=== PATIENT | female | born 1985 | race Caucasian/White ===

== ENCOUNTER 2016-05-06 14:24 | Emergency (ER) | payer OTHER ==
[2016-05-06] MEDS ORDERED: Sodium Chloride 0.9% 10 ML Syringe FLUSH PRN (15:04)
[2016-05-06] MEDS ORDERED: Ondansetron 4 MG/2 ML SDV IVPUSH ONE (15:06)
[2016-05-06] MEDS ORDERED: HYDROmorphone 0.5 MG/0.5 ML Syringe IVPUSH ONE (15:06)
[2016-05-06] MEDS ORDERED: Sodium Chloride 0.9% 1,000 ML IV SCH (15:15)
--- NOTE | 2016-05-06 15:19 | EDM.PDOC ---
ED HPI GI/ABDOMINAL - General Chief Complaint: Flank Pain Stated Complaint: FLANK PAIN/ 5.5 WEEKS PREG Time Seen by Provider: 05/06/16 15:02 Source of Information: Reports: Patient History Limitations: Reports: No limitations - History of Present Illness INITIAL COMMENTS - FREE TEXT/NARRATIVE: Patient is a 30-year-old female who presents to the ED complaining of bilateral adnexa tenderness with low back pain that radiates into the flanks. Pain is constant in nature described as a crampy sensation. This is worsened with walking, prolonged standing, and palpation. Discomfort is improved with resting and sitting. Currently the discomfort to 4/10. States she is approximately 5 and half weeks confirmed by PCP. 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 States she has pain with urination with intermittent increased frequency and also decreased amount. She has been nauseated with episodes of emesis consistent with morning sickness. She denies any fever/ chills, abnormal vaginal discharge, vaginal bleeding, diarrhea, constipation, increased flatulence, history of ovarian cyst, history of ectopic , history of sexual transmitted disease, or any additional complaints. history 2, para one, zero, miscarriage zero. She has history of kidney stones to which she states the pain she is currently experiencing is no way related to previous episodes. Timing/Duration: Reports: Constant, Waxing/waning Location: other (right and left adnexa pain) Quality: Reports: ache, cramping Severity: moderate Worsens with: Reports: palpation, other (standing, ambulating) Context: Denies: sick contact, bad/questionable food, out of country travel, recent surgery, recent trauma, lifting, activity/exercise Associated Symptoms (-Female): Reports: back pain, groin pain, loss of appetite, nausea/vomiting. Denies: constipation, diarrhea, bloody stools, fever /chills Treatments CLIENT RESOLUTION SPECIALIST: Reports: Acetaminophen - Related Data Allergies/ADRs: Allergies Allergy/AdvReac Type Severity Reaction Status Date / Time latex Allergy Hives Verified 05/06/16 14:45 Home Meds: Home Meds Vit37/Iron/Folic Acid [Prenata] 1 each PO DAILY 05/06/16 [History] Past Medical History - Past Health History Medical/Surgical History: Denies Medical/Surgical History Genitourinary History: Reports: Renal calculus Social & Family History - Tobacco Use Smoking Status *Q: Never Smoker Second Hand Smoke Exposure: No - Caffeine Use Caffeine Use: Reports: None - Recreational Drug Use Recreational Drug Use: No ED ROS GENERAL - Review of Systems Review Of Systems: See Below Constitutional: Reports: no symptoms Respiratory: Reports: no symptoms Cardiovascular: Reports: No symptoms GI/Abdominal: Reports: Abdominal pain, Decreased appetite, Nausea, Vomiting. Denies: Black stool, Bloody stool, Constipation, Diarrhea, Distension, Flatus, Hematochezia, Melena : Reports: dysuria, flank pain, frequency, irregular menses, pain, urgency. Denies: hematuria, incontinence, urinary retention Musculoskeletal: Reports: back pain (Low back bilaterally) Neurological: Reports: no symptoms ED EXAM, GI/ABD - Physical Exam Exam: See Below Exam Limited By: No limitations General Appearance: alert, WD/WN, mild distress Ears: hearing grossly normal Nose: normal inspection Throat/Mouth: Normal voice, No airway compromise Neck: normal inspection, supple Respiratory/Chest: no respiratory distress, lungs clear, normal breath sounds, no accessory muscle use Cardiovascular: normal peripheral pulses, regular rate, rhythm GI/Abdominal: normal bowel sounds, soft, no organomegaly, no distention, tenderness (Adnexa bilaterally). No: McBurney's sign, Duggan's sign Back Exam: normal inspection, other (tenderness to the low back bilaterally with radiation to the flanks and groins). No: CVA tenderness (L), CVA tenderness (R), muscle spasm Neurological: alert, oriented, CN II-XII intact, normal cognition, no motor/ sensory deficits Psychiatric: normal affect, normal mood Skin Exam: Warm, Dry, Intact, Normal color Course - Vital Signs Last Recorded V/S: Last Vital Signs Temp 98.1 F 05/06/16 17:54 Pulse 83 05/06/16 17:54 Resp 18 05/06/16 17:54 BP 127/83 05/06/16 17:54 Pulse Ox 100 05/06/16 17:54 - Orders/Labs/Meds Orders: Active Orders 24 hr Category Date Time Status Peripheral IV Care [RC] . DIRECTED Care 05/06/16 15:04 Active PATIENT RETYPE [BBK] Stat Lab 05/06/16 15:32 Results TYPE AND SCREEN [BBK] Stat Lab 05/06/16 15:32 Results Peripheral IV Insertion Adult [OM.PC] Stat Oth 05/06/16 15:03 Ordered Labs: Laboratory Tests 05/06/16 05/06/16 05/06/16 Range/Units 14:50 15:32 15:32 WBC 7.49 (3.98-10.04) K/mm3 RBC 4.22 (3.98-5.22) M/mm3 Hgb 12.3 (11.2-15.7) gm/L Hct 36.5 (34.1-44.9) % MCV 86.5 (79.4-94.8) fl MCH 29.1 (25.6-32.2) pg MCHC 33.7 (32.2-35.5) g/dl RDW Std Deviation 40.8 (36.4-46.3) fL Plt Count 237 (182-369) K/mm3 MPV 9.9 (9.4-12.3) fl Neut % (Auto) 56.0 (34.0-71.1) % Lymph % (Auto) 29.5 (19.3-51.7) % Caroline % (Auto) 10.4 (4.7-12.5) % Eos % (Auto) 3.3 (0.7-5.8) Baso % (Auto) 0.7 (0.1-1.2) % Neut # 4.19 (1.56-6.13) K/mm3 Lymph # 2.21 (1.18-3.74) K/mm3 Caroline # 0.78 H (0.24-0.36) K/mm3 Eos # 0.25 (0.04-0.36) K/mm3 Baso # 0.05 (0.01-0.08) K/mm3 Sodium 140 (136-145) mEq/L Potassium 3.6 (3.5-5.1) mEq/L Chloride 104 (98-107) mEq/L Carbon Dioxide 25 (21-32) mEq/L Anion Gap 14.6 (5-15) BUN 10 (7-18) mg/dL Creatinine 0.8 (0.55-1.02) mg/dL Est Cr Clr Drug Dosing 75.20 mL/min Estimated GFR (MDRD) > 60 (>60) mL/min BUN/Creatinine Ratio 12.5 L (14-18) Glucose 88 (74-106) mg/dL Calcium 9.0 (8.5-10.1) mg/dL Total Bilirubin 0.4 (0.2-1.0) mg/dL AST 10 L (15-37) U/L ALT 21 (14-59) U/L Alkaline Phosphatase 64 (46-116) U/L C-Reactive Protein 0.2 (<1.0) mg/dL Total Protein 7.8 (6.4-8.2) g/dl Albumin 4.1 (3.4-5.0) g/dl Globulin 3.7 gm/dL Albumin/Globulin Ratio 1.1 (1-2) HCG, Quant 00950.0 mIU/mL Urine Color Yellow (Yellow) Urine Appearance Clear (Clear) Urine pH 7.0 (5.0-8.0) Ur Specific Jarrell 1.025 (1.005-1.030) Urine Protein Negative (Negative) Urine Glucose (UA) Negative (Negative) Urine Ketones Negative (Negative) Urine Occult Blood Negative (Negative) Urine Nitrite Negative (Negative) Urine Bilirubin Negative (Negative) Urine Urobilinogen 0.2 (0.2-1.0) Ur Leukocyte Esterase Negative (Negative) Urine RBC 0-5 (0-5) /hpf Urine WBC 0-5 (0-5) /hpf Ur Epithelial Cells 0-5 (0-5) /hpf Urine Bacteria Moderate H (FEW) /hpf Urine Mucus Moderate H (FEW) /hpf Urinalysis Comment Blood Type Gel Antibody Screen 05/06/16 Range/Units 15:32 WBC (3.98-10.04) K/mm3 RBC (3.98-5.22) M/mm3 Hgb (11.2-15.7) gm/L Hct (34.1-44.9) % MCV (79.4-94.8) fl MCH (25.6-32.2) pg MCHC (32.2-35.5) g/dl RDW Std Deviation (36.4-46.3) fL Plt Count (182-369) K/mm3 MPV (9.4-12.3) fl Neut % (Auto) (34.0-71.1) % Lymph % (Auto) (19.3-51.7) % Caroline % (Auto) (4.7-12.5) % Eos % (Auto) (0.7-5.8) Baso % (Auto) (0.1-1.2) % Neut # (1.56-6.13) K/mm3 Lymph # (1.18-3.74) K/mm3 Caroline # (0.24-0.36) K/mm3 Eos # (0.04-0.36) K/mm3 Baso # (0.01-0.08) K/mm3 Sodium (136-145) mEq/L Potassium (3.5-5.1) mEq/L Chloride (98-107) mEq/L Carbon Dioxide (21-32) mEq/L Anion Gap (5-15) BUN (7-18) mg/dL Creatinine (0.55-1.02) mg/dL Est Cr Clr Drug Dosing mL/min Estimated GFR (MDRD) (>60) mL/min BUN/Creatinine Ratio (14-18) Glucose (74-106) mg/dL Calcium (8.5-10.1) mg/dL Total Bilirubin (0.2-1.0) mg/dL AST (15-37) U/L ALT (14-59) U/L Alkaline Phosphatase (46-116) U/L C-Reactive Protein (<1.0) mg/dL Total Protein (6.4-8.2) g/dl Albumin (3.4-5.0) g/dl Globulin gm/dL Albumin/Globulin Ratio (1-2) HCG, Quant mIU/mL Urine Color (Yellow) Urine Appearance (Clear) Urine pH (5.0-8.0) Ur Specific Jarrell (1.005-1.030) Urine Protein (Negative) Urine Glucose (UA) (Negative) Urine Ketones (Negative) Urine Occult Blood (Negative) Urine Nitrite (Negative) Urine Bilirubin (Negative) Urine Urobilinogen (0.2-1.0) Ur Leukocyte Esterase (Negative) Urine RBC (0-5) /hpf Urine WBC (0-5) /hpf Ur Epithelial Cells (0-5) /hpf Urine Bacteria (FEW) /hpf Urine Mucus (FEW) /hpf Urinalysis Comment Blood Type B POSITIVE Gel Antibody Screen Negative Meds: Medications Discontinued Medications Generic Name Dose Route Start Last Admin Trade Name Freq PRN Reason Stop Dose Admin Hydromorphone HCl 0.5 mg 05/06/16 15:06 05/06/16 15:29 Dilaudid IVPUSH 05/06/16 15:07 0.5 mg ONETIME ONE Administration Sodium Chloride 1,000 mls @ 125 mls/hr 05/06/16 15:15 05/06/16 15:27 Normal Saline IV 125 mls/hr ASDIRECTED TERESSA Administration Ondansetron HCl 4 mg 05/06/16 15:06 05/06/16 15:28 Zofran IVPUSH 05/06/16 15:07 4 mg ONETIME ONE Administration Sodium Chloride 10 ml 05/06/16 15:04 05/06/16 15:29 Saline Flush FLUSH 10 ml ASDIRECTED PRN Administration Keep Vein Open - Re-Assessments/Exams Free Text/Narrative Re-Assessment/Exam: Previous quantitative hCG obtained April 26 2016 was 280. Will obtain a peripheral IV with normal saline 125 mls per hour, Zofran 4 mg IVP , Dilaudid 0.5 mg IVP. Initial lab studies include CBC, type and screen, chem 14, CRP, hCG quantitative, UA with micro, and transvaginal OB ultrasound. 05/06/16 15:19 05/06/16 16:06 CBC was essentially normal. UA revealed moderate bacteria and mucus cells. Lab noted possible clue cells. Patient denies increase vaginal discharge nor a history of bacterial vaginosis. CMP was essentially normal. HCG quantitative 32991. 05/06/16 16:07 Ultrasound results: A single intrauterine gestation. Current ultrasound gestational age of 5 weeks 5 days. No heart activity seen most likely related to early age of . Followup exam could be considered 11 days to confirm heart rate. Incidental nabothian cyst. No adnexal abnormalities are seen. Discussed lab results and also ultrasound with the patient. Patient deferred to have any additional testing or vaginal exam for bacterial vaginosis and will see OBGYN May. Patients mother is scheduled to see this day and thus will switch dates with patient. She was provided instructions on discharge as documented. Departure - Departure Time of Disposition: 17:42 Disposition: Home, Self-Care 01 Condition: good Clinical Impression: Low back pain during in first trimester Instructions: Back Pain in Referrals: Adithya Lee MD [Primary Care Provider] - Forms: ED Department Discharge, Return to Work/School Form Additional Instructions: As discussed please follow up with Dr. Lee this coming week for further evaluation and treatment. Again UA did reveal possible clue cells. As discussed further diagnostic testing and vaginal examination will be provided by Dr. Lee. Ultrasound did reveal single intrauterine 5 weeks 5 days old. There is no heart activity but this is most likely related to early age . For low-back discomfort take Tylenol 650 mg every 4-6 hours as needed. Apply warm compresses to low back bilaterally. Refrain from excessive time on your feet since this seems to exacerbate your symptoms. Return back to the ED if experience any new or worsening symptoms as discussed. - My Orders Last 24 Hours: My Active Orders 05/06/16 15:03 Peripheral IV Insertion Adult [OM.PC] Stat 05/06/16 15:04 Peripheral IV Care [RC] . DIRECTED 05/06/16 15:32 PATIENT RETYPE [BBK] Stat TYPE AND SCREEN [BBK] Stat - Assessment/Plan Last 24 Hours: My Active Orders 05/06/16 15:03 Peripheral IV Insertion Adult [OM.PC] Stat 05/06/16 15:04 Peripheral IV Care [RC] . DIRECTED 05/06/16 15:32 PATIENT RETYPE [BBK] Stat TYPE AND SCREEN [BBK] Stat
--- NOTE | 2016-05-06 16:51 | US ---
First trimester obstetrical ultrasound: Multiple real-time images were obtained transabdominally. Comparison: No previous obstetrical ultrasound is available. Dates: LMP given as 03/13/16, [facility]ERSON 12/18/16, gestational age 7 weeks 5 days Current ultrasound: [facility] 01/01/17, gestational age of 5 weeks 5 days Single intrauterine gestation is seen. Yolk sac is seen. Very small pole felt to be present. No heart activity is seen at this time which is felt to be within normal limits. Incidental nabothian cysts are noted. Ovaries are felt to be within normal limits. Measurements: [place]-rump length: 0.21 cm - 5 weeks 5 days Gestational sac: 1.15 cm - 5 weeks 6 days Impression: 1. Single intrauterine gestation. Dates as noted above. 2. No heart activity seen most likely relating to early age of . Follow-up exam could be considered 11 days to confirm heart rate. 3. Incidental nabothian cyst. No adnexal abnormalities are seen. Diagnostic code #2
[2016-05-06 18:00] VITALS: BP 127/83
== END 2016-05-06 17:59 | disposition home or self-care (01) ==
LOC: JD.ED 14:24
DX: O26.891 Other specified pregnancy related conditions, first trimester (principal); M54.5 Low back pain; R10.9 Unspecified abdominal pain; Z91.040 Latex allergy status; Z3A.01 Less than 8 weeks gestation of pregnancy
CPT/HCPCS: 36415; 76817; 80053; 81001; 84702; 85025; 86140; 86850; 86900; 86901; 96361; 96374; 96375; 99284; J1170; J2405; J7040; J7050

== ENCOUNTER 2016-05-20 21:44 | Emergency (ER) | payer OTHER ==
[2016-05-20 22:17] VITALS: BP 115/81
[2016-05-20] MEDS ORDERED: Ondansetron 4 MG/2 ML SDV IVPUSH STA (22:45)
[2016-05-20] MEDS ORDERED: Sodium Chloride 0.9% 1,000 ML IV ONE (22:45)
--- NOTE | 2016-05-21 00:25 | EDM.PDOC ---
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 Her securities research analyst is Dr. Lee. She states that she has been suffering from hyperemesis gravidarum, and is on a [place] antiemetic medication, whose name she cannot recall, but that she claims is not adequately treating her symptoms. She is also complaining of bilateral pelvic pain that radiates up both sides of her abdomen to her flanks, for the past few days. The patient reports slight dysuria. No recent fever. She states that she spoke to Dr. Lee's nurse, who recommended an ultrasound to evaluate her gallbladder. This has been scheduled for this coming Saturday, 05/22. The patient is also scheduled for a ultrasound this coming , 05/24/2016. - Related Data Allergies/ADRs: Allergies Allergy/AdvReac Type Severity Reaction Status Date / Time latex Allergy Hives Verified 05/06/16 14:45 Home Meds: Home Meds Vit37/Iron/Folic Acid [Prenata] 1 each PO DAILY 05/06/16 [History] Past Medical History Genitourinary History: Reports: Renal calculus - Past Surgical History Female Surgical History: Reports: Lithotripsy/ESWL Social & Family History - Tobacco Use Smoking Status *Q: Never Smoker Second Hand Smoke Exposure: No - Caffeine Use Caffeine Use: Reports: Soda, Tea - Alcohol Use Alcohol Use History: Yes Date/Time of Last Drink Comment: Not while - Recreational Drug Use Recreational Drug Use: No - Living Situation & Occupation Living situation: Reports: single, with significant other (Boyfriend), with family (1 child) 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[employer]) ED ROS GENERAL - Review of Systems Review Of Systems: See Below Constitutional: Reports: no symptoms HEENT: Reports: No symptoms Respiratory: Reports: No Symptoms Cardiovascular: Reports: No symptoms Endocrine: Reports: no symptoms GI/Abdominal: Reports: No symptoms : Reports: no symptoms Musculoskeletal: Reports: no symptoms Skin: Reports: no symptoms Neurological: Reports: No Symptoms Psychiatric: Reports: No symptoms Hematologic/Lymphatic: Reports: no symptoms Immunologic: Reports: no symptoms ED EXAM - Physical Exam Exam: See Below Exam Limited By: No limitations General Appearance: alert, WD/WN, no apparent distress, anxious Eye Exam: bilateral eye: EOMI, normal inspection Ears: normal external exam, hearing grossly normal Nose: normal inspection, no blood Throat/Mouth: Normal inspection, Normal lips, Normal voice, No airway compromise Head: atraumatic, normocephalic Neck: normal inspection, full range of motion Respiratory/Chest: no respiratory distress, lungs clear, normal breath sounds, no accessory muscle use, chest non-tender Cardiovascular: normal peripheral pulses, regular rate, rhythm, no edema, no gallop, no JVD, no murmur, no rub GI/Abdominal: normal bowel sounds, soft, no organomegaly, no distention, no abnormal bruit, no mass, tender (Mild bilateral pelvic tenderness.), gravid uterus (Consistent with dates) Back Exam: normal inspection, full range of motion. No: CVA tenderness (L), CVA tenderness (R) Extremities: normal inspection, normal range of motion, normal capillary refill Neurological: alert, oriented, normal cognition, no motor/sensory deficits Psychiatric: normal affect, anxious Skin Exam: Warm, Dry, Intact, Normal color, No rash Lymphatic: no adenopathy Course - Vital Signs Last Recorded V/S: Last Vital Signs Temp 37.3 C 05/20/16 22:14 Pulse 104 H 05/20/16 22:14 Resp 20 05/20/16 22:14 BP 115/81 05/20/16 22:14 Pulse Ox 100 05/20/16 22:14 - Orders/Labs/Meds Labs: Laboratory Tests 05/20/16 05/20/16 05/20/16 Range/Units 23:10 23:10 23:10 WBC Cancelled Corrected WBC Cancelled RBC Cancelled Hgb Cancelled Hct Cancelled MCV Cancelled MCH Cancelled MCHC Cancelled RDW Std Deviation Cancelled Plt Count Cancelled MPV Cancelled Neutrophils % (Manual) Cancelled Band Neutrophils % Cancelled Lymphocytes % (Manual) Cancelled Atypical Lymphs % Cancelled Immat Monocytes % (Man) Cancelled Monocytes % (Manual) Cancelled Eosinophils % (Manual) Cancelled Basophils % (Manual) Cancelled Metamyelocytes % Cancelled Myelocytes % Cancelled Promyelocytes % Cancelled Blast Cells % Cancelled Plasma Cell % (Manual) Cancelled Immature Gran # Cancelled Absolute Neutrophils Cancelled Absolute Seg Neuts Cancelled Band Neutrophils # Cancelled Lymphocytes # (Manual) Cancelled Monocytes # (Manual) Cancelled Eosinophils # (Manual) Cancelled Basophils # (Manual) Cancelled Absolute Metamyelocyte Cancelled Absolute Myelocytes Cancelled Absolute Promyelocytes Cancelled Absolute Plasma Cells Cancelled Nucleated RBCs Cancelled Differential Comment Cancelled Hypersegmented Neuts Cancelled Atypical Lymphocytes Cancelled Vacuolated Monocytes Cancelled Absolute Blast Cells Cancelled Toxic Granulation Cancelled Dohle Bodies Cancelled Pelger-Huet Cells Cancelled Megakaryocytic Frags Cancelled Lisa Rods Cancelled WBC Morphology Comment Cancelled Platelet Estimate Cancelled Clumped Platelets Cancelled Giant Platelets Cancelled Plt Morphology Comment Cancelled Polychromasia Cancelled Hypochromasia Cancelled Poikilocytosis Cancelled Basophilic Stippling Cancelled Anisocytosis Cancelled Microcytosis Cancelled Macrocytosis Cancelled Spherocytes Cancelled Pappenheimer Bodies Cancelled Sickle Cells Cancelled Target Cells Cancelled Tear Drop Cells Cancelled Ovalocytes Cancelled Stomatocytes Cancelled Helmet Cells Cancelled [place] Bodies Cancelled [place] Rings Cancelled Naren Cells Cancelled Elliptocytes Cancelled Acanthocytes (Spur) Cancelled Rouleaux Cancelled Hemoglobin C Crystals Cancelled Schistocytes Cancelled RBC Morph Comment Cancelled Smear Path Review Cancelled Jeremy Bodies Cancelled Sodium 139 (136-145) mEq/L Potassium 3.4 L (3.5-5.1) mEq/L Chloride 104 (98-107) mEq/L Carbon Dioxide 26 (21-32) mEq/L Anion Gap 12.4 (5-15) BUN 12 (7-18) mg/dL Creatinine 0.8 (0.55-1.02) mg/dL Est Cr Clr Drug Dosing 75.20 mL/min Estimated GFR (MDRD) > 60 (>60) mL/min BUN/Creatinine Ratio 15.0 (14-18) Glucose 95 (74-106) mg/dL Calcium 9.3 (8.5-10.1) mg/dL Total Bilirubin 0.2 (0.2-1.0) mg/dL AST 10 L (15-37) U/L ALT 22 (14-59) U/L Alkaline Phosphatase 60 (46-116) U/L Total Protein 7.8 (6.4-8.2) g/dl Albumin 4.2 (3.4-5.0) g/dl Globulin 3.6 gm/dL Albumin/Globulin Ratio 1.2 (1-2) Lipase 217 (73-393) U/L Urine Color Yellow (Yellow) Urine Appearance Clear (Clear) Urine pH 6.0 (5.0-8.0) Ur Specific [place] 1.020 (1.005-1.030) Urine Protein Negative (Negative) Urine Glucose (UA) Negative (Negative) Urine Ketones Negative (Negative) Urine Occult Blood Negative (Negative) Urine Nitrite Negative (Negative) Urine Bilirubin Negative (Negative) Urine Urobilinogen 0.2 (0.2-1.0) Ur Leukocyte Esterase Negative (Negative) Urine RBC 0-5 (0-5) /hpf Urine WBC 0-5 (0-5) /hpf Urine WBC Clumps Not seen (NOT SEEN) /hpf Ur Epithelial Cells 0-5 (0-5) /hpf Urine Bacteria Few (FEW) /hpf Urine Mucus Not seen (FEW) /hpf Urine Yeast Not seen (NOT SEEN) Slides for Path Review Cancelled 05/20/16 Range/Units 23:10 WBC 11.83 H Corrected WBC RBC 4.44 Hgb 12.8 Hct 38.0 MCV 85.6 MCH 28.8 MCHC 33.7 RDW Std Deviation 40.3 Plt Count 268 MPV 10.2 Neutrophils % (Manual) 72 H Band Neutrophils % 1 Lymphocytes % (Manual) 12 L Atypical Lymphs % 1 Immat Monocytes % (Man) Monocytes % (Manual) 13 H Eosinophils % (Manual) 1 Basophils % (Manual) 0 L Metamyelocytes % Myelocytes % Promyelocytes % Blast Cells % Plasma Cell % (Manual) Immature Gran # Absolute Neutrophils Absolute Seg Neuts Band Neutrophils # Lymphocytes # (Manual) Monocytes # (Manual) Eosinophils # (Manual) Basophils # (Manual) Absolute Metamyelocyte Absolute Myelocytes Absolute Promyelocytes Absolute Plasma Cells Nucleated RBCs Differential Comment Hypersegmented Neuts Atypical Lymphocytes Vacuolated Monocytes Absolute Blast Cells Toxic Granulation Dohle Bodies Pelger-Huet Cells Megakaryocytic Frags Lisa Rods WBC Morphology Comment Platelet Estimate Adequate Clumped Platelets Giant Platelets Plt Morphology Comment Normal Polychromasia Hypochromasia Poikilocytosis Basophilic Stippling Anisocytosis Microcytosis Macrocytosis Spherocytes Pappenheimer Bodies Sickle Cells Target Cells Tear Drop Cells Ovalocytes Stomatocytes Helmet Cells [place] Bodies [place] Rings Switzer Cells Elliptocytes Acanthocytes (Spur) Rouleaux Hemoglobin C Crystals Schistocytes RBC Morph Comment Normal Smear Path Review Jeremy Bodies Sodium (136-145) mEq/L Potassium (3.5-5.1) mEq/L Chloride (98-107) mEq/L Carbon Dioxide (21-32) mEq/L Anion Gap (5-15) BUN (7-18) mg/dL Creatinine (0.55-1.02) mg/dL Est Cr Clr Drug Dosing mL/min Estimated GFR (MDRD) (>60) mL/min BUN/Creatinine Ratio (14-18) Glucose (74-106) mg/dL Calcium (8.5-10.1) mg/dL Total Bilirubin (0.2-1.0) mg/dL AST (15-37) U/L ALT (14-59) U/L Alkaline Phosphatase (46-116) U/L Total Protein (6.4-8.2) g/dl Albumin (3.4-5.0) g/dl Globulin gm/dL Albumin/Globulin Ratio (1-2) Lipase (73-393) U/L Urine Color (Yellow) Urine Appearance (Clear) Urine pH (5.0-8.0) Ur Specific [place] (1.005-1.030) Urine Protein (Negative) Urine Glucose (UA) (Negative) Urine Ketones (Negative) Urine Occult Blood (Negative) Urine Nitrite (Negative) Urine Bilirubin (Negative) Urine Urobilinogen (0.2-1.0) Ur Leukocyte Esterase (Negative) Urine RBC (0-5) /hpf Urine WBC (0-5) /hpf Urine WBC Clumps (NOT SEEN) /hpf Ur Epithelial Cells (0-5) /hpf Urine Bacteria (FEW) /hpf Urine Mucus (FEW) /hpf Urine Yeast (NOT SEEN) Slides for Path Review Meds: Medications Discontinued Medications Generic Name Dose Route Start Last Admin Trade Name Freq PRN Reason Stop Dose Admin Sodium Chloride 1,000 mls @ 1,000 mls/hr 05/20/16 22:45 05/20/16 23:06 Normal Saline IV 05/20/16 23:44 1,000 mls/hr ONETIME ONE Administration Ondansetron HCl 8 mg 05/20/16 22:45 05/20/16 23:05 Zofran IVPUSH 05/20/16 22:46 8 mg ONETIME STA Administration - Re-Assessments/Exams Free Text/Narrative Re-Assessment/Exam: 05/21/16 00:14 Test results discussed with the patient, her , and her friends. Today's workup is unremarkable. The patient does not have a significant electrolyte abnormality, renal insufficiency, and she is not dehydrated. She states that she feels better following IV Zofran. I'm recommending she continue to follow treatment for her hyperemesis gravidarum by Dr. Lee. I recommend that she keep her appointments for the ultrasounds scheduled on 05/22/2016 and 05/24/2016. Departure - Departure Time of Disposition: 00:16 Disposition: Home, Self-Care 01 Condition: good Clinical Impression: Hyperemesis gravidarum, Round ligament pain Instructions: Round Ligament Pain, Hyperemesis Gravidarum Referrals: Adithya Lee MD [Primary Care Provider] - Forms: ED Department Discharge Additional Instructions: You were seen in the emergency room tonight for recurrent nausea and vomiting, as well as pain on both sides of the pelvis, radiating up your abdomen to your back. Workup in the ER included blood work and a urinalysis. Your entire workup was normal. You have not suffered electrolyte abnormalities or dehydration as a result of your vomiting. You do not have a urinary tract infection. There is no suggestion of a kidney stone. Your recurrent vomiting is a condition known as hyperemesis gravidarum. Finding the right treatment can be difficult. Please see the printed material provided. 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 Lee. The pain on both sides of her pelvis, radiating up your abdomen to your back is MOST LIKELY due to round ligament pain, also known as discomfort of . Unfortunately, the only treatment is [id number] Tylenol. We recommend that you follow through on the ultrasounds currently scheduled for 05/22/2016 and 05/24/2016. If any other problems, please do not hesitate to return to the ER.
== END 2016-05-21 00:42 | disposition home or self-care (01) ==
LOC: JD.ED 21:44 → SUPCPDRO 21:44 → JD.ED 05-21 00:42
DX: O21.0 Mild hyperemesis gravidarum (principal); Z91.040 Latex allergy status; Z3A.08 8 weeks gestation of pregnancy
CPT/HCPCS: 36415; 80053; 81001; 83690; 85025; 96361; 96374; 99283; J2405; J7040; 99284

== ENCOUNTER 2016-06-22 20:08 | Emergency (ER) | payer MEDICAID ==
[2016-06-22] MEDS ORDERED: Sodium Chloride 0.9% 10 ML Syringe FLUSH PRN (20:33)
[2016-06-22] MEDS ORDERED: HYDROmorphone 1 MG/ML Syringe IVPUSH ONE (20:33)
[2016-06-22] MEDS ORDERED: Sodium Chloride 0.9% 1,000 ML IV ONE (20:33)
[2016-06-22] MEDS ORDERED: Metoclopramide 10 MG/2 ML SDV IVPUSH ONE (20:33)
--- NOTE | 2016-06-22 20:38 | EDM.PDOC ---
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 States yesterday while at work she was on her feet and developed severe lower abdominal cramps that cause some dizziness and increased nausea. She had the sensation she was going to pass out. Today the discomfort has been occurring off and on every half hour to one hour. States the cramping is severe and sharp with onset. It last approximately one minute. States the discomfort is constant. States she's had multiple episodes of dizziness secondary to the increasing pain throughout the course of the day. States over the past hour or so discomfort has been occurring every 5-10 minutes. States she is unable to stand straight up with discomfort. She's had some mild pain with urination with no foul odor present. She's noticed some faint vaginal discharge which she describes as being normal thin and white. She has no history of sexual transmitted diseases. Denies any recent sexual intercourse. She is currently in a monogamous relationship. Denies diarrhea, constipation, fever/chills, chest pain, shortness of breath, or any additional complaints. Patient is 12 weeks 3 days . This is her second . Timing/Duration: Reports: Intermittent Location, : Reports: abdomen Quality: Reports: ache, stabbing, sharp Severity: severe Improves with: Reports: Rest Worsens with: Reports: Other (unknown) Associated Symptoms: Reports: vaginal discharge, mild amount. 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 (see below) (none stated) - Related Data Allergies/ADRs: Allergies Allergy/AdvReac Type Severity Reaction Status Date / Time latex Allergy Hives Verified 06/22/16 20:16 Home Meds: Home Meds Vit37/Iron/Folic Acid [Prenata] 1 each PO DAILY 05/06/16 [History] metroNIDAZOLE [Metronidazole] 500 mg PO BID #13 tablet 06/22/16 [Rx] Past Medical History - Past Health History Medical/Surgical History: Denies Medical/Surgical History Genitourinary History: Reports: Renal calculus - Past Surgical History Female Surgical History: Reports: Lithotripsy/ESWL Social & Family History - Tobacco Use Smoking Status *Q: Never Smoker Second Hand Smoke Exposure: No - Caffeine Use Caffeine Use: Reports: None - Recreational Drug Use Recreational Drug Use: No - Living Situation & Occupation Living situation: Reports: single, with significant other (Boyfriend), with family (1 child) 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 Denies: Abdominal pain, Black stool, Constipation, Diarrhea, Vomiting : Reports: discharge. Denies: dysuria, flank pain, frequency, hematuria, pain , urgency ED EXAM - Physical Exam Exam: See Below Exam Limited By: No limitations General Appearance: alert, WD/WN, mild distress, other (tearful) Ears: hearing grossly normal Nose: normal mucosa Throat/Mouth: Normal inspection, Normal oropharynx, Normal voice, No airway compromise Neck: normal inspection, supple Respiratory/Chest: no respiratory distress, lungs clear, normal breath sounds, no accessory muscle use Cardiovascular: normal peripheral pulses, regular rate, rhythm GI/Abdominal: normal bowel sounds, soft, no organomegaly, no distention, tender (suprapubic/periumbilical/epigastric region with palpation. ) Rectal Exam: Deferred (Female) Exam: Other (deferred) Back Exam: normal inspection. No: CVA tenderness (L), CVA tenderness (R) Extremities: normal inspection, non-tender, no pedal edema Neurological: alert, oriented, CN II-XII intact, normal cognition Psychiatric: normal affect, normal mood Course - Vital Signs Last Recorded V/S: Last Vital Signs Temp 98.0 F 06/22/16 20:13 Pulse 78 06/22/16 23:07 Resp 16 06/22/16 23:07 BP 134/80 06/22/16 23:07 Pulse Ox 99 06/22/16 23:07 - Orders/Labs/Meds Orders: Active Orders 24 hr Category Date Time Status Peripheral IV Care [RC] . DIRECTED Care 06/22/16 20:33 Active OB 1st Tri Sgl 1st Gest [US] Stat Exams 06/22/16 20:33 Taken Peripheral IV Insertion Adult [OM.PC] Stat Oth 06/22/16 20:33 Ordered Labs: Laboratory Tests 06/22/16 06/22/16 06/22/16 Range/Units 20:45 21:05 21:05 WBC 9.10 (3.98-10.04) K/mm3 RBC 3.75 L (3.98-5.22) M/mm3 Hgb 11.1 L (11.2-15.7) gm/L Hct 32.4 L (34.1-44.9) % MCV 86.4 (79.4-94.8) fl MCH 29.6 (25.6-32.2) pg MCHC 34.3 (32.2-35.5) g/dl RDW Std Deviation 41.9 (36.4-46.3) fL Plt Count 220 (182-369) K/mm3 MPV 9.6 (9.4-12.3) fl Neut % (Auto) 57.0 (34.0-71.1) % Lymph % (Auto) 30.9 (19.3-51.7) % [place] % (Auto) 9.0 (4.7-12.5) % Eos % (Auto) 2.6 (0.7-5.8) Baso % (Auto) 0.2 (0.1-1.2) % Neut # (Auto) 5.18 (1.56-6.13) K/mm3 Lymph # (Auto) 2.81 (1.18-3.74) K/mm3 [place] # (Auto) 0.82 H (0.24-0.36) K/mm3 Eos # (Auto) 0.24 (0.04-0.36) K/mm3 Baso # (Auto) 0.02 (0.01-0.08) K/mm3 Sodium 137 (136-145) mEq/L Potassium 3.4 L (3.5-5.1) mEq/L Chloride 104 (98-107) mEq/L Carbon Dioxide 24 (21-32) mEq/L Anion Gap 12.4 (5-15) BUN 9 (7-18) mg/dL Creatinine 0.8 (0.55-1.02) mg/dL Est Cr Clr Drug Dosing 75.20 mL/min Estimated GFR (MDRD) > 60 (>60) mL/min BUN/Creatinine Ratio 11.3 L (14-18) Glucose 105 (74-106) mg/dL Calcium 8.7 (8.5-10.1) mg/dL Total Bilirubin 0.3 (0.2-1.0) mg/dL AST 10 L (15-37) U/L ALT 19 (14-59) U/L Alkaline Phosphatase 58 (46-116) U/L C-Reactive Protein 1.1 H* (<1.0) mg/dL Total Protein 6.6 (6.4-8.2) g/dl Albumin 3.2 L (3.4-5.0) g/dl Globulin 3.4 gm/dL Albumin/Globulin Ratio 0.9 L (1-2) Lipase 200 (73-393) U/L HCG, Quant 20891.0 mIU/mL Urine Color Light yellow (Yellow) Urine Appearance Clear (Clear) Urine pH 8.5 H (5.0-8.0) Ur Specific [place] 1.020 (1.005-1.030) Urine Protein Trace H (Negative) Urine Glucose (UA) Negative (Negative) Urine Ketones Negative (Negative) Urine Occult Blood Negative (Negative) Urine Nitrite Negative (Negative) Urine Bilirubin Negative (Negative) Urine Urobilinogen 0.2 (0.2-1.0) Ur Leukocyte Esterase Trace H (Negative) Urine RBC 0-5 (0-5) /hpf Urine WBC 0-5 (0-5) /hpf Ur Epithelial Cells 0-5 (0-5) /hpf Amorphous Sediment Moderate H (NOT SEEN) /hpf Urine Bacteria Moderate H (FEW) /hpf Urine Mucus Few (FEW) /hpf Meds: Medications Discontinued Medications Generic Name Dose Route Start Last Admin Trade Name Freq PRN Reason Stop Dose Admin Hydromorphone HCl 1 mg 06/22/16 20:33 06/22/16 21:06 Dilaudid IVPUSH 06/22/16 20:34 0.5 mg ONETIME ONE Administration Sodium Chloride 1,000 mls @ 999 mls/hr 06/22/16 20:33 06/22/16 21:03 Normal Saline IV 06/22/16 21:33 999 mls/hr ONETIME ONE Administration Metoclopramide HCl 5 mg 06/22/16 20:33 06/22/16 21:02 Reglan IVPUSH 06/22/16 20:34 5 mg ONETIME ONE Administration Metronidazole 500 mg 06/22/16 22:57 06/22/16 23:03 Flagyl PO 06/22/16 22:58 500 mg ONETIME ONE Administration Sodium Chloride 10 ml 06/22/16 20:33 06/22/16 21:05 Saline Flush FLUSH 10 ml ASDIRECTED PRN Administration Keep Vein Open - Re-Assessments/Exams Free Text/Narrative Re-Assessment/Exam: Order peripheral IV with normal saline 1000 mL per hour. Reglan 5 mg IVP. Dilaudid 0.5 mg IVP. Initial labs and studies include CBC, chem 14, wet prep, CRP, lipase, hCG quantitative, and OB transvaginal. 06/22/16 20:39 Reassessment, pain has improved with the above therapy. Labs reviewed: CBC and C14 essentially normal. Lipase 200. CRP 1.1. HCG Quantitative 03841. UA neg for infection. Transvaginal ultrasound Impression: 12 weeks and 5 day intrauterine with no evidence of complication. Wet prep: moderate clue cells present. Ordered flagyl 500mg PO. Will discharge patient home with instructions for bacterial vaginosis and prescription for flagyl. Departure - Departure Time of Disposition: 22:54 Disposition: Home, Self-Care 01 Condition: good Clinical Impression: BV (bacterial vaginosis), Abdominal pain affecting Prescriptions: metroNIDAZOLE [Metronidazole] 500 mg PO BID #13 tablet Instructions: Bacterial Vaginosis, [id number] Referrals: Adithya Lee MD [Primary Care Provider] - Forms: ED Department Discharge Additional Instructions: Ultrasound revealed a 12 weeks 5 days with a living intrauterine with no evidence of complication. Blood work was essentially normal. Wet prep did reveal moderate clue cells consistent with bacterial vaginosis infection. Treatment is metronidazole 500 mg twice a day for 7 days. Utilize Tylenol for discomfort. Followup with Dr. Lee for this coming week for reevaluation to assure resolution of infection. Return back to the ED for any new or worsening symptoms. No driving this evening since receiving a sedative medication. - My Orders Last 24 Hours: My Active Orders 06/22/16 20:33 Peripheral IV Care [RC] . DIRECTED OB 1st Tri Sgl 1st Gest [US] Stat Peripheral IV Insertion Adult [OM.PC] Stat - Assessment/Plan Last 24 Hours: My Active Orders 06/22/16 20:33 Peripheral IV Care [RC] . DIRECTED OB Tri Gest [US] Stat Peripheral IV Insertion Adult [OM.PC] Stat
[2016-06-22] MEDS ORDERED: metroNIDAZOLE 500 MG Tab PO ONE (22:57)
[2016-06-22 23:08] VITALS: BP 134/80
--- NOTE | 2016-06-24 11:59 | US ---
First trimester obstetrical ultrasound: Multiple real-time images were obtained transabdominally. Comparison: Previous obstetrical ultrasounds are available, most recent is 05/22/16. Dates: Current ultrasound: [facility] 12/30/16, gestational age 12 weeks 5 days Earliest ultrasound (05/06/16): [facility] 01/01/17, gestational age 12 weeks 3 days Single intrauterine gestation is seen. Amniotic fluid volume is normal. No subchorionic hemorrhage is seen. Maternal ovaries are unremarkable. Incidental nabothian cysts are noted. Measurements: [place]-rump length: 62.65 mm - 12 weeks 5 days Heart rate: 144 bpm Impression: 1. Single intrauterine . Dates as noted above. 2. No complicating process is identified by ultrasound exam. Agree with preliminary report issued by [employer] (preliminary report dictated on 06/22/16, 10:50 PM Central Time) Diagnostic code #1
== END 2016-06-22 23:09 | disposition home or self-care (01) ==
LOC: JD.ED 20:08
DX: O26.891 Other specified pregnancy related conditions, first trimester (principal); N76.0 Acute vaginitis; Z3A.12 12 weeks gestation of pregnancy
CPT/HCPCS: 36415; 76801; 80053; 81001; 83690; 84702; 85025; 86140; 87210; 87808; 96361; 96374; 96375; 99284; A9270; J1170; J2765; J7040; J7050

== ENCOUNTER 2016-07-29 13:54 | Emergency (ER) | payer MEDICAID ==
[2016-07-29 14:50] VITALS: BP 120/73
--- NOTE | 2016-07-29 15:37 | EDM.PDOC ---
ED HPI GENERAL MEDICAL PROBLEM - General Chief Complaint: Skin Complaint Stated Complaint: LARGE RED INFECTED ON LEFT INER THIGH Time Seen by Provider: 07/29/16 15:25 Source of Information: Reports: Patient History Limitations: Reports: No Limitations - History of Present Illness INITIAL COMMENTS - FREE TEXT/NARRATIVE: 30-year-old female presents for evaluation and treatment of pain and erythema to the left, inner upper thigh. She reports that this started yesterday and has significantly increased in tenderness and discomfort. It is very tender and warm to touch. No drainage or discharge. Patient has been using ice and hot packs but has not had much symptom relief. She's also been taking Tylenol. No fevers or vomiting. Patient is approximately 17 weeks . 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: - Past Surgical History Female Surgical History: Reports: Lithotripsy/ESWL Social & Family History - Tobacco Use Smoking Status *Q: Never Smoker Second Hand Smoke Exposure: No - Caffeine Use Caffeine Use: Reports: Coffee, Tea - Recreational Drug Use Recreational Drug Use: No - Living Situation & Occupation Living situation: Reports: Single, with Significant Other, with Family Occupation: Employed ED ROS GENERAL - Review of Systems Review Of Systems: See Below Constitutional: Denies: Fever Skin: Reports: Erythema (left proximal medial thigh area of erythema and tenderness), Lumps, Other (no pus or drainage) ED EXAM, SKIN/RASH Exam: See Below Exam Limited By: No Limitations General Appearance: Alert, WD/WN, No Apparent Distress Respiratory/Chest: No Respiratory Distress Cardiovascular: Normal Peripheral Pulses Neurological: Alert, Oriented, Normal Cognition Psychiatric: Normal Affect, Normal Mood Skin: Warm, Erythema (approximately 10cm area of erythema to the left proximal medial thigh with a central 2cm tender, indurated area; no drainage) Location, Skin: Lower Extremity, Left Associated features: Warmth, Tenderness, Induration. No: Weeping Course - Vital Signs Last Recorded V/S: Last Vital Signs Temp 37.0 C 07/29/16 14:47 Pulse 86 07/29/16 14:47 Resp 20 07/29/16 14:47 BP 120/73 07/29/16 14:47 Pulse Ox 100 07/29/16 14:47 - Re-Assessments/Exams Free Text/Narrative Re-Assessment/Exam: 07/30/16 15:38 Patient is very tender to touch concerning the area of cellulites and abscess. Due to the sever discomfort, I feel the best course of action wound be to have the patient do warm compresses and start antibiotics. I feel if we I&D today this would cause significant discomfort and not give much pain relief in the end. I do not feel we would get much drainage with an I&D at this time. Patient agrees to treatment plan. Will discharge home. Discharge instructions as documented. Departure - Departure Time of Disposition: 15:39 Disposition: Home, Self-Care 01 Condition: fair Clinical Impression: Cellulitis and abscess of left leg - Discharge Information Instructions: Abscess, Cellulitis, Adult, [id number] Referrals: Марина Tate PA [Primary Care Provider] - Adithya Lee MD [Physician] - Forms: ED Department Discharge Additional Instructions: Perception for amoxicillin one tab twice a day for 10 days given through instymeds. You will of 10 pills left of this prescription at the end. Tylenol #3 one every 4- 6 hours as needed for severe pain not relieved by Tylenol. Do not take more than 4 g of Tylenol from all sources in one day. Warm compresses to the sore area for 10-15 minutes 4 times a day. Follow up with OB this week. Please return to the ER should your symptoms change or worsen.
== END 2016-07-29 16:05 | disposition home or self-care (01) ==
LOC: JD.ED 13:54
DX: O99.712 Diseases of the skin and subcutaneous tissue complicating pregnancy, second trimester (principal); L03.116 Cellulitis of left lower limb; L02.416 Cutaneous abscess of left lower limb; Z3A.17 17 weeks gestation of pregnancy; Z79.899 Other long term (current) drug therapy; Z91.040 Latex allergy status
CPT/HCPCS: 99283

== ENCOUNTER 2016-07-30 20:53 | Emergency (ER) | payer MEDICAID ==
[2016-07-30] MEDS ORDERED: HYDROmorphone 0.5 MG/0.5 ML Syringe IVPUSH ONE (22:00)
[2016-07-30] MEDS ORDERED: cefTRIAXone 1 GM in Sodium Chloride 0.9% 100 ML IV ONE (22:01)
[2016-07-30] MEDS ORDERED: Ondansetron 4 MG/2 ML SDV IVPUSH ONE (22:01)
[2016-07-30] MEDS ORDERED: Sodium Chloride 0.9% 10 ML Syringe FLUSH PRN (22:01)
--- NOTE | 2016-07-30 22:05 | EDM.PDOC ---
ED HPI GENERAL MEDICAL PROBLEM - General Chief Complaint: Skin Complaint Stated Complaint: INFECTION ON INNER THIGH OF LEFT SIDE Time Seen by Provider: 07/30/16 21:45 Source of Information: Reports: Patient History Limitations: Reports: No Limitations - History of Present Illness INITIAL COMMENTS - FREE TEXT/NARRATIVE: 30-year-old female presents for evaluation and treatment of an abscess and cellulitis to the left inner thigh. Patient was seen by myself in the ER yesterday. She was prescribed amoxicillin and Tylenol No. 3. She is currently 17 weeks . Last night he was decided against an I&D as it was not felt that we get adequate drainage and this would cause significant pain. Patient states she's been taking the amoxicillin as prescribed. She took a Tylenol No. 3 last night but it made her significantly nauseous. She took a little Tylenol earlier today. She is currently complaining of worsening pain, swelling and discomfort the left inner thigh. Denies any fevers and vomiting. Location: Reports: Lower Extremity, Left (proximal medial thigh) left inner thigh Pain Score (Numeric/FACES): 10 - Related Data Allergies Allergy/AdvReac Type Severity Reaction Status Date / Time latex Allergy Hives Verified 07/30/16 21:35 Home Meds: Home Meds Vit37/Iron/Folic Acid [Prenata] 1 each PO DAILY 05/06/16 [History] Acetaminophen with Codeine [Tylenol with Codeine #3 Tablet] 1 each PO TID [History] Amoxicillin 500 mg PO BID 07/30/16 [History] Past Medical History - Past Health History Medical/Surgical History: Denies Medical/Surgical History Genitourinary History: Reports: Renal Calculus 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: Dermatologic History: Reports: Other (See Below) Other Dermatologic History: currently being treated for boils - Past Surgical History Female Surgical History: Reports: Lithotripsy/ESWL Social & Family History - Family History Family Medical History: Noncontributory - Tobacco Use Smoking Status *Q: Never Smoker Second Hand Smoke Exposure: No - Caffeine Use Caffeine Use: Reports: Soda, Tea - Recreational Drug Use Recreational Drug Use: No - Living Situation & Occupation Living situation: Reports: Single, with Significant Other, with Family Occupation: Employed ED ROS GENERAL - Review of Systems Review Of Systems: See Below Constitutional: Denies: Fever GI/Abdominal: Reports: Nausea. Denies: Vomiting Skin: Reports: Erythema (left medial proximal thigh), Lumps (left proximal medial thigh) ED EXAM, SKIN/RASH Exam: See Below Exam Limited By: No Limitations General Appearance: Alert, WD/WN, No Apparent Distress Respiratory/Chest: No Respiratory Distress Neurological: Alert, Oriented, Normal Cognition Psychiatric: Normal Affect, Normal Mood Skin: Warm, Dry, Erythema (approximately 10cm area of cellulitis with a central 6cm in diameter central raised, tender indurated abscess) Location, Skin: Lower Extremity, Left Associated features: Warmth, Tenderness, Wwelling, Induration. No: Weeping ED SKIN PROCEDURES - I&D Site: left proximal medial thigh Skin prep: chlorhexidine (hibiciens) Local anesthesia: Lidocaine: 1% plain Local anesthetic volume: 1cc Area incised with: needle Drainage: purulent, bloody, moderate amount Probed to break up loculations: No Packed with: none Sterile dressing: none Complications: No Course - Vital Signs Last Recorded V/S: Last Vital Signs Temp 37.1 C 07/30/16 21:28 Pulse 88 07/30/16 23:20 Resp 18 07/30/16 23:20 BP 131/74 07/30/16 23:20 Pulse Ox 98 07/30/16 23:20 - Orders/Labs/Meds Orders: Active Orders 24 hr Category Date Time Status Peripheral IV Care [RC] . DIRECTED Care 07/30/16 22:01 Active CULTURE WOUND [RM] Stat Lab 07/30/16 22:50 Received Peripheral IV Insertion Adult [OM.PC] Routine Oth 07/30/16 22:00 Ordered Labs: Laboratory Tests 07/30/16 07/30/16 Range/Units 22:30 22:30 WBC 10.64 H (3.98-10.04) K/mm3 RBC 4.05 (3.98-5.22) M/mm3 Hgb 11.9 (11.2-15.7) gm/L Hct 35.6 (34.1-44.9) % MCV 87.9 (79.4-94.8) fl MCH 29.4 (25.6-32.2) pg MCHC 33.4 (32.2-35.5) g/dl RDW Std Deviation 44.0 (36.4-46.3) fL Plt Count 240 (182-369) K/mm3 MPV 10.3 (9.4-12.3) fl Neutrophils % (Manual) 72 H (40-60) % Band Neutrophils % 0 (0-10) % Lymphocytes % (Manual) 25 (20-40) % Atypical Lymphs % 0 % Monocytes % (Manual) 0 L (2-10) % Eosinophils % (Manual) 3 (0.7-5.8) % Basophils % (Manual) 0 L (0.1-1.2) Platelet Estimate Adequate RBC Morph Comment Not Reportable Sodium 140 (136-145) mEq/L Potassium 3.6 (3.5-5.1) mEq/L Chloride 104 (98-107) mEq/L Carbon Dioxide 24 (21-32) mEq/L Anion Gap 15.6 H (5-15) BUN 10 (7-18) mg/dL Creatinine 0.7 (0.55-1.02) mg/dL Est Cr Clr Drug Dosing TNP Estimated GFR (MDRD) > 60 (>60) mL/min BUN/Creatinine Ratio 14.3 (14-18) Glucose 87 (74-106) mg/dL Calcium 9.4 (8.5-10.1) mg/dL Total Bilirubin 0.3 (0.2-1.0) mg/dL AST 15 (15-37) U/L ALT 24 (14-59) U/L Alkaline Phosphatase 97 (46-116) U/L C-Reactive Protein 6.1 H* (<1.0) mg/dL Total Protein 7.7 (6.4-8.2) g/dl Albumin 3.6 (3.4-5.0) g/dl Globulin 4.1 gm/dL Albumin/Globulin Ratio 0.9 L (1-2) Meds: Medications Discontinued Medications Generic Name Dose Route Start Last Admin Trade Name Freq PRN Reason Stop Dose Admin Hydromorphone HCl 0.5 mg 07/30/16 22:00 07/30/16 22:31 Dilaudid IVPUSH 07/30/16 22:01 0.5 mg ONETIME ONE Administration Ceftriaxone Sodium 1 gm/ 100 mls @ 200 mls/hr 07/30/16 22:01 07/30/16 22:32 Sodium Chloride IV 07/30/16 22:30 200 mls/hr ONETIME ONE Administration Ondansetron HCl 4 mg 07/30/16 22:01 07/30/16 22:31 Zofran IVPUSH 07/30/16 22:02 4 mg ONETIME ONE Administration Sodium Chloride 10 ml 07/30/16 22:01 07/30/16 22:33 Saline Flush FLUSH 10 ml ASDIRECTED PRN Administration Keep Vein Open - Re-Assessments/Exams Free Text/Narrative Re-Assessment/Exam: 07/30/16 23:00 Patient was given an IV, 0.5 mg IV Dilaudid and a milligram of IV Rocephin. The area was cleansed with chloraprepPrep. I then gave her 1 cc of lidocaine and was able to aspirate approximately 2 mL of purulent bloody fluid from the abscess. I was also able to express another 2-3 mils with pressure. Patient tolerated this well. 07/31/16 00:08 Lab studies include the following. white blood cell count slightly elevated at 10.64, hemoglobin 11.9 and platelets 240. Sodium 140, potassium 3.6 and chloride 104. Anion gap 15.6. Creatinine 0.7. Glucose 87. CRP elevated 6.1. Culture was sent. Will have the patient followup to insure that she is on proper antibiotics and for further management and care. Departure - Departure Time of Disposition: 23:09 Disposition: Home, Self-Care 01 Condition: fair Clinical Impression: Cellulitis and abscess of left leg - Discharge Information Instructions: Abscess, [id number] Referrals: Adithya Lee MD [Primary Care Provider] - Forms: ED Department Discharge Additional Instructions: Continue taking the amoxicillin. Continue doing the warm compresses. Allow the wound to continue drain. Continue with the Tylenol #3 as needed for severe pain. I recommend you crush these and take them with food if you're having difficulty taking them. 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 Please return to the ER if your symptoms change or worsen. - My Orders Last 24 Hours: My Active Orders 07/30/16 22:00 Peripheral IV Insertion Adult [OM.PC] Routine 07/30/16 22:01 Peripheral IV Care [RC] . DIRECTED 07/30/16 22:50 CULTURE WOUND [RM] Stat - Assessment/Plan Last 24 Hours: My Active Orders 07/30/16 22:00 Peripheral IV Insertion Adult [OM.PC] Routine 07/30/16 22:01 Peripheral IV Care [RC] . DIRECTED 07/30/16 22:50 CULTURE WOUND [RM] Stat
[2016-07-30 23:27] VITALS: BP 131/74
== END 2016-07-30 23:20 | disposition home or self-care (01) ==
LOC: JD.ED 20:53
DX: O99.712 Diseases of the skin and subcutaneous tissue complicating pregnancy, second trimester (principal); L03.116 Cellulitis of left lower limb; L02.416 Cutaneous abscess of left lower limb; Z91.040 Latex allergy status; Z3A.17 17 weeks gestation of pregnancy
CPT/HCPCS: 10160; 36415; 80053; 85025; 86140; 87070; 96365; 96375; 99284; J0696; J1170; J2405; J7030; J7050; 10060

== ENCOUNTER 2016-08-17 20:44 | Emergency (ER) | payer MEDICAID ==
[2016-08-17 21:03] VITALS: BP 138/77
--- NOTE | 2016-08-17 22:27 | PCM.CONS ---
H&P History of Present Illness - General Date of Service: 08/17/16 Admit Problem/Dx: Cramping 19 weeks. Source of Information: Patient History Limitations: Reports: No Limitations - History of Present Illness Initial Comments - Free Text/Narative: 30 y/o ANDERSON 01/01/2015 EGA 19w5d. C/O cramping today with spotting about 2000 hrs with urination when wiping with toilet paper. Concerned it could be vaginal bleeding, no dyuria but feels like stomach cramping and low backache. No recent coitus. Exam uterus soft, vagina no blood on normal appearing creamy white vaginal secretions. Cervix closed long, firm, posterior, no visible membranes and no old or recent blood. `Imp: Z3A.19 Cramping in O26.899 Abdominal pain R10.9 Plan: UA with micro, urine culture STAT OB limited USG If indicated Macrobid 100 mg bid x10 days. Keep 08/21/16 appointment Pelvic rest x 2 weeks after cramping stops Drink two quarts of water daily Cranberry juice Return to ER if change in symptoms or any concerns. Hawa COELHO will Rx Macrobid if needed after USG and call me if any problems. Onset of Symptoms: Reports: Today Symptom Onset Date: 08/17/16 Symptom Onset Time: 20:00 Duration of Symptoms: Reports: Hour(s): Location: Reports: Abdomen, Back Quality: Reports: Ache, Pressure Improves with: Reports: None Worsens with: Reports: None Associated Symptoms: Reports: No Other Symptoms Abdominal Pain Score (Numeric/FACES): 6 - Related Data Allergies/Adverse Reactions: Allergies Allergy/AdvReac Type Severity Reaction Status Date / Time latex Allergy Hives Verified 08/17/16 21:04 Home Medications: Home Meds Vit37/Iron/Folic Acid [Prenata] 1 each PO DAILY 05/06/16 [History] Past Medical History - Past Health History Medical/Surgical History: Denies Medical/Surgical History Genitourinary History: Reports: Renal Calculus 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: Dermatologic History: Reports: Other (See Below) Other Dermatologic History: currently being treated for boils - Past Surgical History Female Surgical History: Reports: Lithotripsy/ESWL Social & Family History - Family History Family Medical History: Noncontributory - Tobacco Use Smoking Status *Q: Never Smoker Second Hand Smoke Exposure: No - Caffeine Use Caffeine Use: Reports: Soda - Recreational Drug Use Recreational Drug Use: No - Living Situation & Occupation Living situation: Reports: Single, with Significant Other, with Family Occupation: Employed H&P Review of Systems - Review of Systems: Review Of Systems: See Below General: Reports: No Symptoms HEENT: Reports: No Symptoms Pulmonary: Reports: No Symptoms Cardiovascular: Reports: No Symptoms Gastrointestinal: Reports: No Symptoms Genitourinary: Reports: Other (noted blood on TP when wiping after voiding) Musculoskeletal: Reports: No Symptoms Skin: Reports: No Symptoms Psychiatric: Reports: No Symptoms Neurological: Reports: No Symptoms Hematologic/Lymphatic: Reports: No Symptoms Immunologic: Reports: No Symptoms Exam - Exam Exam: See Below - Vital Signs Vital Signs: Last Vital Signs Temp 98.3 F 08/17/16 20:55 Pulse 98 08/17/16 20:55 Resp 18 08/17/16 20:55 BP 138/77 08/17/16 20:55 Pulse Ox 100 08/17/16 20:55 Weight: 178 lb - Exam General: Alert, Oriented, 4 Abdomen: Normal Bowel Sounds, Soft, Pelvis Stable (Female) Exam: Normal External Exam, Normal Speculum Exam, Normal Bimanual Exam (FHR 148 bpm) Consult PN Assessment/Plan Procedures: Procedures ASSAY OF BLOOD/URIC ACID (12/13/15) ASSAY OF LIPASE (06/22/16) ASSAY OF MAGNESIUM (05/18/16) BLOOD TYPING SEROLOGIC ABO (05/10/16) BLOOD TYPING SEROLOGIC RH(D) (05/10/16) C-REACTIVE PROTEIN (07/30/16) CHEST X-RAY 2VW FRONTAL&LATL (02/03/16) CHORIONIC GONADOTROPIN TEST (06/22/16) CHYLMD TRACH DNA AMP PROBE (05/10/16) COMPLETE CBC W/AUTO DIFF WBC (07/30/16) COMPREHEN METABOLIC PANEL (07/30/16) CT ABD & PELVIS W/O CONTRAST (12/13/15) CULTURE OTHR SPECIMN AEROBIC (07/30/16) CULTURE SCREEN ONLY (02/03/16) ECHO EXAM OF ABDOMEN (05/22/16) EMERGENCY DEPT VISIT (07/30/16) EMERGENCY DEPT VISIT (07/29/16) EMERGENCY DEPT VISIT (06/22/16) EMERGENCY DEPT VISIT (05/20/16) EMERGENCY DEPT VISIT (05/06/16) HELICOBACTER PYLORI ANTIBODY (05/18/16) HEPATITIS B SURFACE AG IA (05/10/16) HYDRATE IV INFUSION ADD-ON (06/22/16) INFLUENZA ASSAY W/OPTIC (02/03/16) N.GONORRHOEAE DNA AMP PROB (05/10/16) OB US < 14 WKS SINGLE FETUS (06/22/16) OB US >/= 14 WKS SNGL FETUS (08/14/16) PUNCTURE DRAINAGE OF LESION (07/30/16) RBC ANTIBODY SCREEN (05/10/16) ROUTINE VENIPUNCTURE (07/30/16) RUBELLA ANTIBODY (05/10/16) SMEAR WET M[place] SALINE/INK (06/22/16) STREP A AG IA (02/03/16) SYPHILIS TEST NON-TREP QUAL (05/10/16) THER/PROPH/DIAG INJ IV PUSH (06/22/16) THER/PROPH/DIAG IV INF INIT (07/30/16) TRANSVAGINAL US OBSTETRIC (05/22/16) TRICHOMONAS ASSAY W/OPTIC (06/22/16) TX/PRO/DX INJ NEW DRUG ADDON (07/30/16) URINALYSIS AUTO W/O SCOPE (08/06/16) URINALYSIS AUTO W/SCOPE (06/22/16) URINE CULTURE/COLONY COUNT (05/10/16) URINE TEST (12/13/15) X-RAY EXAM OF FOOT (08/06/16) (1) 19 weeks gestation of SNOMED Code(s): 54639209 Code(s): Z3A.19 - 19 WEEKS GESTATION OF (2) Abdominal pain during , antepartum SNOMED Code(s): 452570635 Code(s): O26.899 - OTH RELATED CONDITIONS, UNSPECIFIED TRIMESTER; R10.9 - UNSPECIFIED ABDOMINAL PAIN (3) Abdominal pain SNOMED Code(s): 96191895 Code(s): R10.9 - UNSPECIFIED ABDOMINAL PAIN Qualifiers: Abdominal location: unspecified location Qualified Code(s): R10.9 - Unspecified abdominal pain (4) Abdominal pain affecting SNOMED Code(s): 119085866 Code(s): O26.899 - OTH RELATED CONDITIONS, UNSPECIFIED TRIMESTER; R10.9 - UNSPECIFIED ABDOMINAL PAIN Problem List Initiated/Reviewed/Updated: No My Orders last 24 hours: My Active Orders 08/17/16 22:13 CULTURE URINE [RM] Stat UA W/MICROSCOPIC [URIN] Stat 08/17/16 22:14 OB Ltd 1 or More Fetus [US] Stat 08/18/16 09:00 Vit37/Iron/Folic Acid [Prenata] 1 each PO DAILY Plan: 30 y/o ANDERSON 01/01/2015 EGA 19w5d. C/O cramping today with spotting about 2000 hrs with urination when wiping with toilet paper. Concerned it could be vaginal bleeding, no dyuria but feels like stomach cramping and low backache. No recent coitus. Exam uterus soft, vagina no blood on normal appearing creamy white vaginal secretions. Cervix closed long, firm, posterior, no visible membranes and no old or recent blood. `Imp: Z3A.19 Cramping in O26.899 Abdominal pain R10.9 Plan: UA with micro, urine culture STAT OB limited USG If indicated Macrobid 100 mg bid x10 days. Keep 08/21/16 appointment Pelvic rest x 2 weeks after cramping stops Drink two quarts of water daily Cranberry juice Return to ER if change in symptoms or any concerns. Hawa COELHO will Rx Macrobid if needed after USG and call me if any problems.
--- NOTE | 2016-08-17 23:57 | EDM.PDOC ---
ED HPI GENERAL MEDICAL PROBLEM - General Chief Complaint: COYOTE HUNTER Problem Stated Complaint: 19 WEEKS 5 DAYS PREG./CRAMPING AND BLOOD Time Seen by Provider: 08/17/16 22:55 Source of Information: Reports: Patient History Limitations: Reports: No Limitations - History of Present Illness INITIAL COMMENTS - FREE TEXT/NARRATIVE: 30-year-old female presents for evaluation treatment of lower abdominal and pelvic cramping. She is also concerned as she feels like she may have seen some blood in her urine. Patient is almost 21 weeks . Her COYOTE HUNTER provider is Dr. Lee. Patient reports that she has been under increased stress and anxiety due to a strained relationship with the patient's father. Unfortunately, when the patient entered the ER we were quite busy at that time. She is over 20 weeks but was sent to the ER versus OB. I asked Dr. Lee , who was present in the hospital and is her COYOTE HUNTER provider to come and see the patient. Please see his note for details. Onset: Today Onset Date: 08/17/16 Onset Time: 20:00 Duration: Hour(s): Location: Reports: Abdomen, Back Quality: Reports: Ache, Pressure Improves with: Reports: None Worsens with: Reports: None Associated Symptoms: Reports: No Other Symptoms Abdominal Pain Score (Numeric/FACES): 6 - Related Data Allergies Allergy/AdvReac Type Severity Reaction Status Date / Time latex Allergy Hives Verified 08/17/16 21:04 Home Meds: Home Meds Vit37/Iron/Folic Acid [Prenata] 1 each PO DAILY 05/06/16 [History] Past Medical History - Past Health History Medical/Surgical History: Denies Medical/Surgical History Genitourinary History: Reports: Renal Calculus 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: Dermatologic History: Reports: Other (See Below) Other Dermatologic History: currently being treated for boils - Past Surgical History Female Surgical History: Reports: Lithotripsy/ESWL Social & Family History - Family History Family Medical History: Noncontributory - Tobacco Use Smoking Status *Q: Never Smoker Second Hand Smoke Exposure: No - Caffeine Use Caffeine Use: Reports: Soda - Recreational Drug Use Recreational Drug Use: No - Living Situation & Occupation Living situation: Reports: Single, with Significant Other, with Family Occupation: Employed ED ROS GENERAL - Review of Systems Review Of Systems: See Below : Reports: Hematuria, Pain (pelvic cramping), Other (no vaginal bleeding) Psychiatric: Reports: Anxiety ED EXAM - Physical Exam Exam: See Below Exam Limited By: No Limitations General Appearance: Alert, WD/WN, No Apparent Distress Respiratory/Chest: No Respiratory Distress Fundal Height In cm: 20 Heart Tones: Present Heart Tones per Min: 148 Movement: Active Neurological: Alert, Oriented Psychiatric: Anxious, Tearful Skin Exam: Warm, Dry Course - Vital Signs Last Recorded V/S: Last Vital Signs Temp 36.8 C 08/17/16 20:55 Pulse 98 08/17/16 20:55 Resp 18 08/17/16 20:55 BP 138/77 08/17/16 20:55 Pulse Ox 100 08/17/16 20:55 - Orders/Labs/Meds Labs: Laboratory Tests 08/17/16 Range/Units 22:10 Urine Color Light yellow (Yellow) Urine Appearance Slt cloudy H (Clear) Urine pH 7.0 (5.0-8.0) Ur Specific [place] 1.020 (1.005-1.030) Urine Protein Negative (Negative) Urine Glucose (UA) Negative (Negative) Urine Ketones Negative (Negative) Urine Occult Blood Negative (Negative) Urine Nitrite Negative (Negative) Urine Bilirubin Negative (Negative) Urine Urobilinogen 0.2 (0.2-1.0) Ur Leukocyte Esterase Negative (Negative) Urine RBC Not seen (0-5) /hpf Urine WBC 0-5 (0-5) /hpf Ur Epithelial Cells 0-5 (0-5) /hpf Urine Bacteria Few (FEW) /hpf Urine Mucus Not seen (FEW) /hpf Meds: Medications Discontinued Medications Generic Name Dose Route Start Last Admin Trade Name Randyq PRN Reason Stop Dose Admin Prenat Multivit/[place]/Iron/Folic Ac 1 each 08/18/16 09:00 Plus Iron PO DAILY TERESSA - Radiology Interpretation Free Text/Narrative:: ultrasound , limited impression per Vrad: 1. 20 wk and 6 day living intrauterine with no obvious complication. Presentation is breech. heart rate is 1 32 bpm. Placenta is anterior with no evidence of previa. Amniotic fluid index is 132 bpm. Cervical length is 3.2 cm. - Re-Assessments/Exams Free Text/Narrative Re-Assessment/Exam: 08/07/16 22:50 Dr. Lee has presented to the ER and has evaluated the patient. See his note for details. He has ordered a UA and an ultrasound. He asked that I reviewed the results with the patient and discharge if ultrasound is unremarkable. Prescribe antibiotics if needed for UTI. 08/17/16 23:47 UA shows no leuks, nitrites, glucose, protein or blood. I reviewed the ultrasound results with the patient and the UA. Patient is to follow-up with Dr. Clark this week. Discharge instructions as documented. Departure - Departure Time of Disposition: 23:55 Disposition: Home, Self-Care 01 Condition: Good Clinical Impression: Abdominal pain affecting , Vaginal bleeding in - Discharge Information Instructions: Abdominal Pain, Adult, [id number] Referrals: Adithya Lee MD [Primary Care Provider] - Forms: ED Department Discharge, Return to Work/School Form Additional Instructions: Continue with your current plan of care. Follow-up with OB this week as planned. Go home and rest. Make sure you are drinking plenty of fluids. Note given for work. Please return to the ER if your symptoms change or worsen.
[2016-08-18] MEDS ORDERED: Prenatal Multivitamin with Calcium/Folic Acid/Iron Tab PO SCH (09:00)
--- NOTE | 2016-08-20 11:32 | US ---
Limited obstetrical ultrasound: Multiple real-time images were obtained transabdominally. Comparison: Previous obstetrical ultrasounds are available, most recent is 08/14/16. Dates: LMP: ? Current ultrasound: ANDERSON 12/29/16, gestational age 20 weeks 6 days Earliest ultrasound (05/06/16): ANDERSON 01/01/17, gestational age 20 weeks 3 days. presentation: Breech Placenta: Anterior with no findings of placenta previa, no findings of abruption. Amniotic fluid: JUANCHO 13.0 cm Measurements: BPD: 4.82 cm - 20 weeks 5 days Head circumference: 18.69 cm - 21 weeks 1 day Abdominal circumference: 15.80 cm - 21 weeks 0 days Femur length: 3.27 cm - 20 weeks 2 days Estimated weight: 367 g (0 lbs. 13 oz.), estimated weight at the 33rd percentile for age by current ultrasound Rate: 132 BPM Cervical length: 3.2 cm Impression: 1. Single intrauterine fetus currently breech in presentation. Dates as noted above. 2. No complicating process is identified by ultrasound at this time. Diagnostic code #1 Agree with preliminary report issued by [facility] ([facility] preliminary report dictated on 08/18/16, 12:30 AM Central Time)
== END 2016-08-18 00:12 | disposition home or self-care (01) ==
LOC: JD.ED 20:44
DX: O20.9 Hemorrhage in early pregnancy, unspecified (principal); Z91.040 Latex allergy status; Z87.442 Personal history of urinary calculi; Z98.890 Other specified postprocedural states; Z3A.20 20 weeks gestation of pregnancy
CPT/HCPCS: 76815; 76815-26; 81001; 87086; 99282; 99285-25

== ENCOUNTER 2016-12-20 09:18 | Inpatient (IN) | payer MEDICAID ==
[2016-12-20] MEDS ORDERED: Sodium Chloride 0.9% 10 ML Syringe FLUSH PRN (12:36)
[2016-12-20] MEDS ORDERED: Ondansetron 4 MG/2 ML SDV IVPUSH PRN (12:36)
--- NOTE | 2016-12-20 12:42 | PCM.LDHP ---
L&D History of Present Illness - General Date of Service: 12/20/16 Admit Problem/Dx: Patient Status Order with Admit Dx/Problem 12/20/16 12:36 Patient Status [ADT] Routine Admission Diagnosis/Problem Admission Diagnosis/Problem Source of Information: Patient History Limitations: Reports: No Limitations - History of Present Illness Introduction:: Patient reports that she had a large gush of blood into the toilet this morning. She reports that the water in the toilet was completely red and that there was several specks of blood on the floor around the toilet. She reports that after she started passing large amount of blood she used had increased amount of contractions that were more intense and more frequent than her Cleve Taylor contractions she had been having more recently. She thinks that the contractions were probably about every 8-10 minutes. She reports that they were strong enough to cause her to have to stop which she was doing. She came to the hospital at that time for further evaluation. She has continued to note some light pink spotting when she would go to the bathroom and wiped. She reports good movement. She denies any leaking of fluid. Associated Symptoms: Reports: vaginal bleeding Present Illness Comments:: Bel is a 31-year-old at 38 weeks 2 days by five-week ultrasound. Review of initial labs showed that patient is B+ blood type with negative antibody screen. She had mild anemia on 05/10/16 with a hemoglobin of 11.9. Her platelets were 248,000. She is rubella immune and RPR nonreactive. Hepatitis B surface antigen negative and HIV was negative. She was negative for gonorrhea and chlamydia. She had Gardnerella vaginalis in her urine on initial urine culture. Her 1 hour glucose test was 120. Her hemoglobin was 10.0 on 09/25/16. She was group B strep negative. Her has been complicated by history of anxiety and depression, hemorrhoids, migraines, yeast vulvovaginitis and 1 episode of mild elevation of blood pressure at 31 weeks gestational age. She was given a course of corticosteroids at that time. She had no additional blood pressure issues in the remainder of the . She has a weight gain of 33-1/2 pounds throughout the . For her anxiety and depression she was previously on medications but she has not been using any and medication for treatment during . She had 1 previous normal spontaneous vaginal delivery on 08/24/2008 at 38 weeks ' gestational age of a female . weight was 7 lbs. 13 oz. 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) Dermatologic History: Reports: Other (See Below) Other Dermatologic History: currently being treated for boils - Past Surgical History Female Surgical History: Reports: Lithotripsy/ESWL Social & Family History - Family History Family Medical History: Noncontributory - Tobacco Use Smoking Status *Q: Never Smoker Second Hand Smoke Exposure: No - Caffeine Use Caffeine Use: Reports: Soda - Alcohol Use Alcohol Use History: No - Recreational Drug Use Recreational Drug Use: No - Living Situation & Occupation Living situation: Reports: Single, with Significant Other, with Family Occupation: Employed H&P Review of Systems - Review of Systems: Review Of Systems: See Below General: Denies: Fever, Chills HEENT: Denies: Sinus Congestion, Sore Throat, Visual Changes Pulmonary: Denies: Shortness of Breath, Wheezing, Cough Cardiovascular: Denies: Chest Pain, Palpitations Gastrointestinal: Denies: Abdominal Pain, Constipation, Diarrhea, Nausea, Vomiting Genitourinary: Denies: Dysuria, Frequency, Burning Musculoskeletal: Reports: Other (Hip pain) Skin: Reports: Rash (Vulvovaginitis, currently treated) Psychiatric: Reports: Depression, Anxiety Neurological: Denies: Headache Hematologic/Lymphatic: Reports: Anemia L&D Exam - Exam Exam: See Below - Vital Signs Weight: 89.358 kg - OB Specific Contraction Duration (sec): 60 Contraction Frequency (min): 26 Contraction Intensity: Mild to Moderate Movement: Active Heart Tones: Present Heart Tones per Min: 130 (Occasional late decelerations) Heart Rate (FHR) Variability: Moderate (6-25 bmp) Presentation: Vertex - Dan Score Dan Score Cervix Position: Midposition Dan Score Consistency: Medium Dan Score Effacement: 51-70% Dan Score Dilation: 3-4 cm Dan Score 's Station: -3 Dan Score Total: 6 - Exam General: Alert, Oriented HEENT: Conjunctiva Clear, EOMI Neck: Supple, Trachea Midline Lungs: Clear to Auscultation, Normal Respiratory Effort Cardiovascular: Regular Rate, Regular Rhythm GI/Abdominal Exam: Soft, Non-Tender Genitourinary: Normal external exam, Cervical dilitation (4 cm). No: Cervical discharge, Cervical fluid, Cervix motion tenderness, Vaginal bleeding Back Exam: Normal Inspection Extremities: Normal Inspection, No Pedal Edema Skin: Warm, Dry, Intact - Patient Data Lab Results Last 24 hrs: Laboratory Results - last 24 hr 12/20/16 12/20/16 12/20/16 Range/Units 09:50 10:03 10:03 WBC 9.22 (3.98-10.04) K/mm3 RBC 3.41 L (3.98-5.22) M/mm3 Hgb 10.2 L (11.2-15.7) gm/L Hct 30.2 L (34.1-44.9) % MCV 88.6 (79.4-94.8) fl MCH 29.9 (25.6-32.2) pg MCHC 33.8 (32.2-35.5) g/dl RDW Std Deviation 40.5 (36.4-46.3) fL Plt Count 216 (182-369) K/mm3 MPV 10.1 (9.4-12.3) fl Neut % (Auto) 67.7 (34.0-71.1) % Lymph % (Auto) 19.6 (19.3-51.7) % Lyman % (Auto) 9.2 (4.7-12.5) % Eos % (Auto) 2.1 (0.7-5.8) Baso % (Auto) 0.3 (0.1-1.2) % Neut # (Auto) 6.24 H (1.56-6.13) K/mm3 Lymph # (Auto) 1.81 (1.18-3.74) K/mm3 Lyman # (Auto) 0.85 H (0.24-0.36) K/mm3 Eos # (Auto) 0.19 (0.04-0.36) K/mm3 Baso # (Auto) 0.03 (0.01-0.08) K/mm3 Sodium 140 (136-145) mEq/L Potassium 4.0 (3.5-5.1) mEq/L Chloride 106 (98-107) mEq/L Carbon Dioxide 22 (21-32) mEq/L Anion Gap 16.0 H (5-15) BUN 8 (7-18) mg/dL Creatinine 0.7 (0.55-1.02) mg/dL Est Cr Clr Drug Dosing 85.18 mL/min Estimated GFR (MDRD) > 60 (>60) mL/min BUN/Creatinine Ratio 11.4 L (14-18) Glucose 84 (74-106) mg/dL Calcium 8.9 (8.5-10.1) mg/dL Total Bilirubin 0.3 (0.2-1.0) mg/dL AST 15 (15-37) U/L ALT 18 (14-59) U/L Alkaline Phosphatase 171 H (46-116) U/L Total Protein 6.7 (6.4-8.2) g/dl Albumin 2.7 L (3.4-5.0) g/dl Globulin 4.0 gm/dL Albumin/Globulin Ratio 0.7 L (1-2) Ur Random Creatinine 60.8 (30.0-125.0) mg/dL U Random Total Protein 10.1 (0.0-11.8) mg/dL Result Diagrams: 12/20/16 10:03 12/20/16 10:03 - Problem List (1) 38 weeks gestation of SNOMED Code(s): 79375345 ICD Code: Z3A.38 - 38 WEEKS GESTATION OF Status: Acute Current Visit: Yes (2) Anxiety and depression SNOMED Code(s): 607941974 ICD Code: F41.8 - OTHER SPECIFIED ANXIETY DISORDERS Status: Acute Current Visit: Yes (3) Hemorrhoid SNOMED Code(s): 02719948 ICD Code: K64.9 - UNSPECIFIED HEMORRHOIDS Status: Acute Current Visit: Yes (4) Migraine SNOMED Code(s): 58059613 ICD Code: G43.909 - MIGRAINE, UNSP, NOT INTRACTABLE, WITHOUT STATUS MIGRAINOSUS Status: Acute Current Visit: Yes (5) Candidiasis of vulva and vagina SNOMED Code(s): 88808591 ICD Code: B37.3 - CANDIDIASIS OF VULVA AND VAGINA Status: Acute Current Visit: No (6) Vaginal bleeding in SNOMED Code(s): 49890568 ICD Code: O46.90 - ANTEPARTUM HEMORRHAGE, UNSPECIFIED, UNSPECIFIED TRIMESTER Status: Acute Current Visit: No Problem List Initiated/Reviewed/Updated: Yes Orders Last 24hrs: Active Orders 24 hr Category Date Time Status Patient Status [ADT] Routine ADT 12/20/16 12:36 Ordered Activity as Tolerated [RC] PFP Care 12/20/16 12:36 Ordered Antiembolic Devices [RC] .Routine Care 12/20/16 12:38 Ordered Bedrest Bathroom Privileges [RC] ASDIRECTED Care 12/20/16 09:39 Inactive Communication Order [RC] ASDIRECTED Care 12/20/16 12:36 Ordered Heart Tones [RC] ASDIRECTED Care 12/20/16 12:38 Ordered Non Stress Test [RC] PER UNIT ROUTINE Care 12/20/16 09:40 Inactive Notify Provider Vital Signs [RC] PRN Care 12/20/16 12:38 Ordered Notify Provider [RC] PFP Care 12/20/16 12:36 Ordered Notify Provider [RC] PRN Care 12/20/16 12:36 Ordered Peripheral IV Care [RC] . DIRECTED Care 12/20/16 12:38 Ordered Urinary Catheter Assessment [RC] ASDIRECTED Care 12/20/16 12:36 Ordered VTE/DVT Education [RC] PER UNIT ROUTINE Care 12/20/16 12:38 Ordered Vital Signs [RC] PER UNIT ROUTINE Care 12/20/16 09:40 Inactive Vital Signs [RC] PER UNIT ROUTINE Care 12/20/16 12:36 Ordered Nothing Per Oral Diet [DIET] Diet 12/20/16 Dinner Ordered Regular Diet [DIET] Diet 12/20/16 Lunch Ordered Lactated Ringers [Ringers, Lactated] 1,000 ml Med 12/20/16 12:45 Ordered IV ASDIRECTED Ondansetron [Zofran] Med 12/20/16 12:36 Ordered 4 mg IVPUSH Q4H PRN Oxytocin/Lactated Ringers [Pitocin in LR 10 Units/1,000 Med 12/20/16 12:45 Ordered ML] 10 unit in 1,000 ml IV .CONTINUOUS Oxytocin/Lactated Ringers [Pitocin in LR 10 Units/1,000 Med 12/20/16 12:45 Ordered ML] 10 unit in 1,000 ml IV TITRATE Sodium Chloride 0.9% [Saline Flush] Med 12/20/16 12:36 Ordered 10 ml FLUSH ASDIRECTED PRN DVT/VTE Prophylaxis Reflex [OM.PC] Routine Ot 12/20/16 12:36 Ordered Electronic Heart Tones Ext w TOCO [WOMSER] Ot 12/20/16 12:36 Ordered Routine Electronic Heart Tones Internal [WOMSER] Per Unit Ot 12/20/16 12:36 Ordered Routine Peripheral IV Insertion Adult [OM.PC] Routine Ot 12/20/16 12:36 Ordered Resuscitation Status Routine Resus Stat 12/20/16 09:39 Ordered Assessment/Plan Comment:: 31-year-old 001 at 38 weeks 2 days by five-week ultrasound with vaginal bleeding and occasional late decelerations, suspect that this could be bleeding from cervical change as she was 4 cm on exam today and she was 2 cm in the office earlier this week versus placental abruption given severe morbidity of placental abruption we'll keep patient for induction of labor as she is term * Refer to observation on labor and delivery for induction of labor * Start IV and give lactated Ringer's for total infusion rate of 125 mL/m * Start Pitocin for augmentation of labor * Patient is GBS negative and prophylaxis not indicated * Epidural as desired by patient * Patient may have meal at this time and then may have light snacks and ice chips until delivery * Patient plans to breast-feed * Anticipate normal vaginal delivery unless otherwise indicated Abel Rodriguez M.D. 4:53 PM 12/20/16
[2016-12-20] MEDS ORDERED: Oxytocin/Lactated Ringers 10 UNIT/1,000 ML BAG IV SCH ×2 (12:45→20:12)
[2016-12-20] MEDS: Lactated Ringers 1,000 ML IV SCH ×3 (13:29→18:10)
[2016-12-20] MEDS: Oxytocin/Lactated Ringers 10 UNIT/1,000 ML BAG IV SCH ×2 (13:29→16:20)
[2016-12-20] MEDS ORDERED: fentaNYL 100 MCG/2 ML SDV EPIDUR PRN (16:27)
[2016-12-20] MEDS ORDERED: diphenhydrAMINE 50 MG/ML SDV IVPUSH PRN (16:27)
[2016-12-20] MEDS ORDERED: ePHEDrine 50 MG/ML SDV IVPUSH PRN (16:27)
[2016-12-20] MEDS ORDERED: Bupivacaine/fentaNYL/NS 100 ML Bag EPIDUR SCH (16:30)
--- NOTE | 2016-12-20 17:00 | PCM.PREANE ---
Preanesthetic Assessment - Anesthesia/Transfusion/Family Hx Anesthesia History: Prior Anesthesia Without Reaction Family History of Anesthesia Reaction: No Transfusion History: No Prior Transfusion(s) - Review of Systems General: No Symptoms Pulmonary: No Symptoms Cardiovascular: No Symptoms Gastrointestinal: No Symptoms Neurological: No Symptoms Other: Reports: None - Physical Assessment Pulse: 85 O2 Sat by Pulse Oximetry: 97 Respiratory Rate: 20 Blood Pressure: 116/70 Temperature: 36.6 C Vital Signs: Last Vital Signs Temp 36.6 C 12/20/16 12:00 Pulse 85 12/20/16 14:00 Resp 20 12/20/16 12:00 BP 116/70 12/20/16 14:00 Pulse Ox Height: 1.52 m Weight: 89.358 kg ASA Class: 2 Mental Status: Alert & Oriented x3 Airway Class: Mallampati = 1 Dentition: Reports: Normal Dentition Thyro-Mental Finger Breadths: 3 Mouth Opening Finger Breadths: 3 ROM/Head Extension: Full Lungs: Clear to Auscultation, Normal Respiratory Effort Cardiovascular: Regular Rate, Regular Rhythm, No Murmurs - Lab Values: Laboratory Last Values WBC 9.22 K/mm3 (3.98-10.04) 12/20/16 10:03 RBC 3.41 M/mm3 (3.98-5.22) L 12/20/16 10:03 Hgb 10.2 gm/L (11.2-15.7) L 12/20/16 10:03 Hct 30.2 % (34.1-44.9) L 12/20/16 10:03 MCV 88.6 fl (79.4-94.8) 12/20/16 10:03 MCH 29.9 pg (25.6-32.2) 12/20/16 10:03 MCHC 33.8 g/dl (32.2-35.5) 12/20/16 10:03 RDW Std Deviation 40.5 fL (36.4-46.3) 12/20/16 10:03 Plt Count 216 K/mm3 (182-369) 12/20/16 10:03 MPV 10.1 fl (9.4-12.3) 12/20/16 10:03 Neut % (Auto) 67.7 % (34.0-71.1) 12/20/16 10:03 Lymph % (Auto) 19.6 % (19.3-51.7) 12/20/16 10:03 [place] % (Auto) 9.2 % (4.7-12.5) 12/20/16 10:03 Eos % (Auto) 2.1 (0.7-5.8) 12/20/16 10:03 Baso % (Auto) 0.3 % (0.1-1.2) 12/20/16 10:03 Neut # (Auto) 6.24 K/mm3 (1.56-6.13) H 12/20/16 10:03 Lymph # (Auto) 1.81 K/mm3 (1.18-3.74) 12/20/16 10:03 [place] # (Auto) 0.85 K/mm3 (0.24-0.36) H 12/20/16 10:03 Eos # (Auto) 0.19 K/mm3 (0.04-0.36) 12/20/16 10:03 Baso # (Auto) 0.03 K/mm3 (0.01-0.08) 12/20/16 10:03 Sodium 140 mEq/L (136-145) 12/20/16 10:03 Potassium 4.0 mEq/L (3.5-5.1) 12/20/16 10:03 Chloride 106 mEq/L (98-107) 12/20/16 10:03 Carbon Dioxide 22 mEq/L (21-32) 12/20/16 10:03 Anion Gap 16.0 (5-15) H 12/20/16 10:03 BUN 8 mg/dL (7-18) 12/20/16 10:03 Creatinine 0.7 mg/dL (0.55-1.02) 12/20/16 10:03 Est Cr Clr Drug Dosing 85.18 mL/min 12/20/16 10:03 Estimated GFR (MDRD) > 60 mL/min (>60) 12/20/16 10:03 BUN/Creatinine Ratio 11.4 (14-18) L 12/20/16 10:03 Glucose 84 mg/dL (74-106) 12/20/16 10:03 Calcium 8.9 mg/dL (8.5-10.1) 12/20/16 10:03 Total Bilirubin 0.3 mg/dL (0.2-1.0) 12/20/16 10:03 AST 15 U/L (15-37) 12/20/16 10:03 ALT 18 U/L (14-59) 12/20/16 10:03 Alkaline Phosphatase 171 U/L (46-116) H 12/20/16 10:03 Total Protein 6.7 g/dl (6.4-8.2) 12/20/16 10:03 Albumin 2.7 g/dl (3.4-5.0) L 12/20/16 10:03 Globulin 4.0 gm/dL 12/20/16 10:03 Albumin/Globulin Ratio 0.7 (1-2) L 12/20/16 10:03 Ur Random Creatinine 60.8 mg/dL (30.0-125.0) 12/20/16 09:50 U Random Total Protein 10.1 mg/dL (0.0-11.8) 12/20/16 09:50 - Allergies Allergies/Adverse Reactions: Allergies Allergy/AdvReac Type Severity Reaction Status Date / Time latex Allergy Hives Verified 09/25/16 21:35 - Anesthesia Plan Pre-Op Medication Ordered: None - Acknowledgements Anesthesia Type Planned: Epidural Pt an Appropriate Candidate for the Planned Anesthesia: Yes Alternatives and Risks of Anesthesia Discussed w Pt/Guardian: Yes Pt/Guardian Understands and Agrees with Anesthesia Plan: Yes PreAnesthesia Questionnaire - Past Health History Medical/Surgical History: Denies Medical/Surgical History HEENT History: Reports: Other (See Below) Other HEENT History: wears glasses Gastrointestinal History: Reports: GERD Genitourinary History: Reports: Renal Calculus 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 Dermatologic History: Reports: Other (See Below) Other Dermatologic History: currently being treated for boils - Past Surgical History Female Surgical History: Reports: Lithotripsy/ESWL - SUBSTANCE USE Smoking Status *Q: Never Smoker Tobacco Use Within Last Twelve Months: No Second Hand Smoke Exposure: No Recreational Drug Use History: No - HOME MEDS Home Medications: Home Meds Vit37/Iron/Folic Acid [Prenata] 1 each PO DAILY 05/06/16 [History] - CURRENT (IN HOUSE) MEDS Current Meds: Current Medications Diphenhydramine HCl (Benadryl) 25 mg IVPUSH Q6H PRN PRN Reason: Itching Ephedrine Sulfate (Ephedrine Sulfate) 5 mg IVPUSH ASDIRECTED PRN PRN Reason: HYPOTENTSION Fentanyl (Sublimaze) 100 mcg EPIDUR Q3H PRN PRN Reason: PAIN Fentanyl/Bupivacaine HCl (Fentanyl/Bupivacaine/Ns 2 Mcg-0.125% 100 Ml) 100 ml EPIDUR ASDIRECTED TERESSA Lactated Ringer's (Ringers, Lactated) 1,000 mls @ 100 mls/hr IV ASDIRECTED TERESSA Last Admin: 12/20/16 16:49 Dose: 999 mls/hr Oxytocin/Lactated Ringer's (Pitocin In Lr 10 Units/1,000 Ml) 10 unit in 1,000 mls @ 100 mls/hr IV .CONTINUOUS TERESSA Oxytocin/Lactated Ringer's (Pitocin In Lr 10 Units/1,000 Ml) 10 unit in 1,000 mls @ 12 mls/hr IV TITRATE TERESSA; 2 MUNITS/MIN PRN Reason: Protocol Last Admin: 12/20/16 16:20 Dose: 6 munits/min, 36 mls/hr Ondansetron HCl (Zofran) 4 mg IVPUSH Q4H PRN PRN Reason: Nausea/Vomiting Sodium Chloride (Saline Flush) 10 ml FLUSH ASDIRECTED PRN PRN Reason: Keep Vein Open
[2016-12-20] MEDS ORDERED: Lidocaine 1% 50 ML MDV ONE (19:00)
[2016-12-20] MEDS ORDERED: Lidocaine 1% 20 ML MDV INJECT ONE (19:07)
--- NOTE | 2016-12-20 20:02 | PCM.DEL ---
L & D Note - General Info Date of Service: 12/20/16 Mother's Due Date: 01[birth year]01/17 - Delivery Note Labor: Augmented by Oxytocin Delivery Outcome: Livebirth Infant Delivery Method: Spontaneous Vaginal Delivery-Single Presentation: Right Occiput Anterior (TRACIE) Nuchal Cord: None Anesthesia Type: Local, Epidural Anesthetic: Lidocaine (Xylocaine) 1% Plain Local Anesthetic Volume: Other (20 ml) Amniotic Fluid Description: Clear Episiotomy Type: None Laceration: 2nd Degree (Midline), Periurethral (Bilateral) Suture type: Vicryl Suture size: other (3-0 Vicryl for second-degree midline, 4-0 Vicryl for first- degree periurethral) Placenta: Intact, Spontaneous Cord: 3 Vessels Estimated Blood Loss: 300 Resuscitation Needed: No : Bulb Syringe, [place] Used Provider: Abel Rodriguez Score 1 min: 8 Score 5 min: 9 Second Stage Interventions: Reports: Pushing, Knee Chest Position Delivery Comments (Free Text/Narrative):: Stage I: Bel was admitted for augmentation of early labor in the setting of possible placental abruption after she had a large gush of blood in the morning of 12/20/16 and several late decelerations on monitoring during her evaluation. On admission her cervix was dilated to 4 cm. She was GBS [negative] . She was started on Pitocin for augmentation of her labor. She had artificial rupture membranes with return of clear fluid. She was given an epidural for anesthesia. She progressed to complete and pushing. Stage II: On 12/20/16 she had a [normal] vaginal delivery of a [live] male at 1855. Apgars of 8 & 9. Weight of 3960 g (8 lbs 12 oz). Length of 21 inches. There was no nuchal cord[]. was delivered in way position. The cord was doubly clamped and cut by friend. was [placed on mother's abdomen]. Stage III: She had a [spontaneous] delivery of an [intact] placenta in [[place]] presentation. [Three] vessel cord. She was given pitocin and fundal massage. She had a second-degree midline and bilateral periurethral lacerations. The midline laceration was repaired with 3-0 Vicryl. The periurethral lacerations were repaired with 4-0 Vicryl. [Mom and baby were stable to recovery]. EBL of 300 mL. Abel Rodriguez MD 8:05 PM 12/20/16 - Patient Data Vitals - Most Recent: Last Vital Signs Temp 36.6 C 12/20/16 17:00 Pulse 103 H 12/20/16 19:10 Resp 20 12/20/16 17:00 BP 133/83 12/20/16 19:10 Pulse Ox 97 12/20/16 17:00 Weight - Most Recent: 89.358 kg I&O - Last 24 Hours: Intake & Output 12/20/16 12/20/16 12/20/16 06:59 14:59 22:59 Intake Total 0 Balance 0 Lab Results Last 24 Hours: Laboratory Results - last 24 hr 12/20/16 12/20/16 12/20/16 Range/Units 09:50 10:03 10:03 WBC 9.22 (3.98-10.04) K/mm3 RBC 3.41 L (3.98-5.22) M/mm3 Hgb 10.2 L (11.2-15.7) gm/L Hct 30.2 L (34.1-44.9) % MCV 88.6 (79.4-94.8) fl MCH 29.9 (25.6-32.2) pg MCHC 33.8 (32.2-35.5) g/dl RDW Std Deviation 40.5 (36.4-46.3) fL Plt Count 216 (182-369) K/mm3 MPV 10.1 (9.4-12.3) fl Neut % (Auto) 67.7 (34.0-71.1) % Lymph % (Auto) 19.6 (19.3-51.7) % [place] % (Auto) 9.2 (4.7-12.5) % Eos % (Auto) 2.1 (0.7-5.8) Baso % (Auto) 0.3 (0.1-1.2) % Neut # (Auto) 6.24 H (1.56-6.13) K/mm3 Lymph # (Auto) 1.81 (1.18-3.74) K/mm3 [place] # (Auto) 0.85 H (0.24-0.36) K/mm3 Eos # (Auto) 0.19 (0.04-0.36) K/mm3 Baso # (Auto) 0.03 (0.01-0.08) K/mm3 Sodium 140 (136-145) mEq/L Potassium 4.0 (3.5-5.1) mEq/L Chloride 106 (98-107) mEq/L Carbon Dioxide 22 (21-32) mEq/L Anion Gap 16.0 H (5-15) BUN 8 (7-18) mg/dL Creatinine 0.7 (0.55-1.02) mg/dL Est Cr Clr Drug Dosing 85.18 mL/min Estimated GFR (MDRD) > 60 (>60) mL/min BUN/Creatinine Ratio 11.4 L (14-18) Glucose 84 (74-106) mg/dL Calcium 8.9 (8.5-10.1) mg/dL Total Bilirubin 0.3 (0.2-1.0) mg/dL AST 15 (15-37) U/L ALT 18 (14-59) U/L Alkaline Phosphatase 171 H (46-116) U/L Total Protein 6.7 (6.4-8.2) g/dl Albumin 2.7 L (3.4-5.0) g/dl Globulin 4.0 gm/dL Albumin/Globulin Ratio 0.7 L (1-2) Ur Random Creatinine 60.8 (30.0-125.0) mg/dL U Random Total Protein 10.1 (0.0-11.8) mg/dL Med Orders - Current: Current Medications Diphenhydramine HCl (Benadryl) 25 mg IVPUSH Q6H PRN PRN Reason: Itching Ephedrine Sulfate (Ephedrine Sulfate) 5 mg IVPUSH ASDIRECTED PRN PRN Reason: HYPOTENTSION Fentanyl (Sublimaze) 100 mcg EPIDUR Q3H PRN PRN Reason: PAIN Last Admin: 12/20/16 17:01 Dose: 100 mcg Fentanyl/Bupivacaine HCl (Fentanyl/Bupivacaine/Ns 2 Mcg-0.125% 100 Ml) 100 ml EPIDUR ASDIRECTED [facility] Last Admin: 12/20/16 17:01 Dose: 100 ml Lactated Ringer's (Ringers, Lactated) 1,000 mls @ 100 mls/hr IV ASDIRECTED TERESSA Last Admin: 12/20/16 18:10 Dose: 250 mls/hr Oxytocin/Lactated Ringer's (Pitocin In Lr 10 Units/1,000 Ml) 10 unit in 1,000 mls @ 100 mls/hr IV .CONTINUOUS TERESSA Oxytocin/Lactated Ringer's (Pitocin In Lr 10 Units/1,000 Ml) 10 unit in 1,000 mls @ 12 mls/hr IV TITRATE TERESSA; 2 MUNITS/MIN PRN Reason: Protocol Last Titration: 12/20/16 19:00 Dose: 900 mls/hr Ondansetron HCl (Zofran) 4 mg IVPUSH Q4H PRN PRN Reason: Nausea/Vomiting Sodium Chloride (Saline Flush) 10 ml FLUSH ASDIRECTED PRN PRN Reason: Keep Vein Open Discontinued Medications Lidocaine HCl (Xylocaine 1%) Confirm Administered Dose 50 ml .ROUTE .STK-MED ONE Stop: 12/20/16 19:01 Lidocaine HCl (Xylocaine 1%) 20 ml INJECT ONETIME ONE Stop: 12/20/16 19:08 - Problem List & Annotations (1) 38 weeks gestation of SNOMED Code(s): 56689626 Code(s): Z3A.38 - 38 WEEKS GESTATION OF Status: Acute Current Visit: Yes (2) Anxiety and depression SNOMED Code(s): 931651864 Code(s): F41.8 - OTHER SPECIFIED ANXIETY DISORDERS Status: Acute Current Visit: Yes (3) Hemorrhoid SNOMED Code(s): 11710248 Code(s): K64.9 - UNSPECIFIED HEMORRHOIDS Status: Acute Current Visit: Yes (4) Migraine SNOMED Code(s): 76292744 Code(s): G43.909 - MIGRAINE, UNSP, NOT INTRACTABLE, WITHOUT STATUS MIGRAINOSUS Status: Acute Current Visit: Yes (5) Candidiasis of vulva and vagina SNOMED Code(s): 02062109 Code(s): B37.3 - CANDIDIASIS OF VULVA AND VAGINA Status: Acute Current Visit: No (6) Vaginal bleeding in SNOMED Code(s): 28813628 Code(s): O46.90 - ANTEPARTUM HEMORRHAGE, UNSPECIFIED, UNSPECIFIED TRIMESTER Status: Acute Current Visit: No (7) (normal spontaneous vaginal delivery) SNOMED Code(s): 95065045 Code(s): O80 - ENCOUNTER FOR FULL-TERM UNCOMPLICATED DELIVERY Status: Acute Current Visit: Yes (8) Second degree laceration of perineum, delivered, current hospitalization SNOMED Code(s): 678483798 Code(s): O70.1 - SECOND DEGREE PERINEAL LACERATION DURING DELIVERY Status: Acute Current Visit: Yes (9) Periurethral laceration, delivered, current hospitalization SNOMED Code(s): 107064634 Code(s): O71.82 - OTHER SPECIFIED TRAUMA TO PERINEUM AND VULVA Status: Acute Current Visit: Yes - Problem List Review Problem List Initiated/Reviewed/Updated: Yes - My Orders Last 24 Hours: My Active Orders 12/20/16 09:39 Bedrest Bathroom Privileges [RC] ASDIRECTED Resuscitation Status Routine 12/20/16 09:40 Non Stress Test [RC] PER UNIT ROUTINE Vital Signs [RC] PER UNIT ROUTINE 12/20/16 12:36 Patient Status [ADT] Routine Activity as Tolerated [RC] PFP Communication Order [RC] ASDIRECTED Notify Provider [RC] PFP Notify Provider [RC] PRN Urinary Catheter Assessment [RC] ASDIRECTED Vital Signs [RC] PER UNIT ROUTINE Ondansetron [Zofran] 4 mg IVPUSH Q4H PRN Sodium Chloride 0.9% [Saline Flush] 10 ml FLUSH ASDIRECTED PRN DVT/VTE Prophylaxis Reflex [OM.PC] Routine Electronic Heart Tones Ext w TOCO [WOMSER] Routine Electronic Heart Tones Internal [WOMSER] Per Unit Routine Peripheral IV Insertion Adult [OM.PC] Routine 12/20/16 12:38 Antiembolic Devices [RC] .Routine Heart Tones [RC] ASDIRECTED Notify Provider Vital Signs [RC] PRN Peripheral IV Care [RC] . DIRECTED VTE/DVT Education [RC] PER UNIT ROUTINE 12/20/16 12:45 Lactated Ringers [Ringers, Lactated] 1,000 ml IV ASDIRECTED Oxytocin/Lactated Ringers [Pitocin in LR 10 Units/1,000 ML] 10 unit in 1,000 ml IV .CONTINUOUS Oxytocin/Lactated Ringers [Pitocin in LR 10 Units/1,000 ML] 10 unit in 1,000 ml IV TITRATE 12/20/16 19:49 Patient Status Manage Transfer [TRANSFER] Routine 12/20/16 Dinner Nothing Per Oral Diet [DIET] 12/20/16 Lunch Regular Diet [DIET] - Plan Plan:: 31-year-old G2 2002 status post at 38 weeks 2 days by five-week ultrasound with vaginal bleeding and occasional late decelerations * Admitted to inpatient following delivery * Continue Pitocin per protocol after delivery of placenta * Continue routine vital signs * Continue IV until patient is able to tolerate regular diet and drinking normal amounts of liquid * Continue fundal checks * Anticipate discharge home possibly tomorrow or on day #2 Abel Rodriguez M.D. 8:09 PM 12/20/16
[2016-12-20] MEDS ORDERED: Witch Hazel Medicated Pads 100/Jar TOP PRN (20:12)
[2016-12-20] MEDS ORDERED: Docusate Sodium 100 MG Cap PO PRN (20:12)
[2016-12-20] MEDS ORDERED: Lactated Ringers 1,000 ML IV SCH (20:12)
[2016-12-20] MEDS ORDERED: Benzocaine/Menthol 20%-0.5% Spray 56 GM Canister TOP PRN (20:12)
[2016-12-20] MEDS ORDERED: Ibuprofen 600 MG Tab PO PRN (20:12)
[2016-12-20] MEDS ORDERED: Magnesium Hydroxide 400 MG/5 ML Susp 30 ML Cup PO PRN (20:12)
[2016-12-20] MEDS ORDERED: Acetaminophen 325 MG Tab PO PRN (20:12)
[2016-12-20] MEDS ORDERED: Lanolin 100% Cream 7 GM Tube TOP PRN (20:12)
[2016-12-20] MEDS ORDERED: Hydrocortisone Acetate 25 MG Supp RECTAL PRN (20:12)
[2016-12-20] MEDS ORDERED: Bupivacaine 0.25% 10 ML SDV ONE (22:22)
[2016-12-21] MEDS ORDERED: Ferrous Sulfate 325 MG Tab PO SCH (07:00)
[2016-12-21] MEDS ORDERED: Prenatal Multivitamin with Calcium/Folic Acid/Iron Tab PO SCH (09:00)
--- NOTE | 2016-12-21 09:47 | PCM.SN ---
- Free Text/Narrative Note: Post Progress Note PPD # 1 Subjective: Doing well overall. Ambulating without difficulty. Lochia minimal. Voiding without difficulty. Tolerating regular diet. Pain controlled with oral medications. Breast feeding with minimal difficulty. Objective: Vitals: Last Vital Signs Temp 36.6 C 12/20/16 17:00 Pulse 162 H 12/20/16 19:45 Resp 20 12/20/16 17:00 BP 119/57 L 12/20/16 19:45 Pulse Ox 97 12/20/16 17:00 Physical Exam General: Alert and oriented, no acute distress Lungs: Clear to auscultation bilaterally Heart: Regular rate and rhythm Abdomen: Soft, nontender, nondistended, fundus midline, nontender, and below the umbilicus Extremities: No edema ASSESSMENT: 31-year-old female G 2 P 2002 s/p normal vaginal delivery PPD #1, complicated by anemia, history of anxiety and depression, hemorrhoids, migraines, yeast vulvovaginitis and 1 episode of mild elevation of blood pressure at 31 weeks gestational age PLAN: Doing well Breast feeding with minimal difficulty. Assist as needed Lochia minimal. Continue to monitor for appropriate lochia. Continue routine care Anticipate discharge home today Abel Rodriguez MD 9:46 AM 12/21/16
--- NOTE | 2016-12-21 09:51 | PCM48HPAN ---
Post Anesthesia Note - EVALUATION WITHIN 48HRS OF ANESTHETIC Vital Signs in Normal Range: Yes Patient Participated in Evaluation: Yes Respiratory Function Stable: Yes Airway Patent: Yes Cardiovascular Function Stable: Yes Hydration Status Stable: Yes Pain Control Satisfactory: Yes Nausea and Vomiting Control Satisfactory: Yes Mental Status Recovered: Yes
[2016-12-21 14:06] VITALS: BP 128/67
--- NOTE | 2016-12-26 09:41 | PCM.DCSUM1 ---
Discharge Summary - Hospital Course Free Text/Narrative:: Stage I: Bel was admitted for augmentation of early labor in the setting of possible placental abruption after she had a large gush of blood in the morning of 12/20/16 and several late decelerations on monitoring during her evaluation. On admission her cervix was dilated to 4 cm. She was GBS negative. She was started on Pitocin for augmentation of her labor. She had artificial rupture membranes with return of clear fluid. She was given an epidural for anesthesia. She progressed to complete and pushing. Stage II: On 12/20/16 she had a normal vaginal delivery of a live male at 1855. Apgars of 8 & 9. Weight of 3960 g (8 lbs 12 oz). Length of 21 inches. There was no nuchal cord. was delivered in TRACIE position. The cord was doubly clamped and cut by friend. Infant was placed on mother's abdomen. Stage III: She had a spontaneous delivery of an intact placenta in [place] presentation. Three vessel cord. She was given pitocin and fundal massage. She had a second-degree midline and bilateral periurethral lacerations. The midline laceration was repaired with 3-0 Vicryl. The periurethral lacerations were repaired with 4-0 Vicryl. Mom and baby were stable to recovery. EBL of 300 mL. HPI Initial Comments: Stage I: Bel was admitted for augmentation of early labor in the setting of possible placental abruption after she had a large gush of blood in the morning of 12/20/16 and several late decelerations on monitoring during her evaluation. On admission her cervix was dilated to 4 cm. She was GBS negative. She was started on Pitocin for augmentation of her labor. She had artificial rupture membranes with return of clear fluid. She was given an epidural for anesthesia. She progressed to complete and pushing. Stage II: On 12/20/16 she had a normal vaginal delivery of a live male infant at 1855. Apgars of 8 & 9. Weight of 3960 g (8 lbs 12 oz). Length of 21 inches. There was no nuchal cord. Infant was delivered in TRACIE position. The cord was doubly clamped and cut by friend. Infant was placed on mother's abdomen. Stage III: She had a spontaneous delivery of an intact placenta in [place] presentation. Three vessel cord. She was given pitocin and fundal massage. She had a second-degree midline and bilateral periurethral lacerations. The midline laceration was repaired with 3-0 Vicryl. The periurethral lacerations were repaired with 4-0 Vicryl. Mom and baby were stable to recovery. EBL of 300 mL. Brief History: Stage I: Bel was admitted for augmentation of early labor in the setting of possible placental abruption after she had a large gush of blood in the morning of 12/20/16 and several late decelerations on monitoring during her evaluation. On admission her cervix was dilated to 4 cm. She was GBS negative. She was started on Pitocin for augmentation of her labor. She had artificial rupture membranes with return of clear fluid. She was given an epidural for anesthesia. She progressed to complete and pushing. Stage II: On 12/20/16 she had a normal vaginal delivery of a live male infant at 1855. Apgars of 8 & 9. Weight of 3960 g (8 lbs 12 oz). Length of 21 inches. There was no nuchal cord. was delivered in TRACIE position. The cord was doubly clamped and cut by friend. Infant was placed on mother's abdomen. Stage III: She had a spontaneous delivery of an intact placenta in [place] presentation. Three vessel cord. She was given pitocin and fundal massage. She had a second- degree midline and bilateral periurethral lacerations. The midline laceration was repaired with 3-0 Vicryl. The periurethral lacerations were repaired with 4 -0 Vicryl. Mom and baby were stable to recovery. EBL of 300 mL. - Discharge Data Discharge Date: 12/21/16 Discharge Disposition: Home, Self-Care 01 Condition: Good - Discharge Diagnosis/Problem(s) (1) 38 weeks gestation of SNOMED Code(s): 15808238 ICD Code: Z3A.38 - 38 WEEKS GESTATION OF Status: Acute (2) Anxiety and depression SNOMED Code(s): 424282590 ICD Code: F41.8 - OTHER SPECIFIED ANXIETY DISORDERS Status: Acute (3) Hemorrhoid SNOMED Code(s): 92440855 ICD Code: K64.9 - UNSPECIFIED HEMORRHOIDS Status: Acute (4) Migraine SNOMED Code(s): 79770880 ICD Code: G43.909 - MIGRAINE, UNSP, NOT INTRACTABLE, WITHOUT STATUS MIGRAINOSUS Status: Acute (5) Candidiasis of vulva and vagina SNOMED Code(s): 24967795 ICD Code: B37.3 - CANDIDIASIS OF VULVA AND VAGINA Status: Acute (6) Vaginal bleeding in SNOMED Code(s): 63549831 ICD Code: O46.90 - ANTEPARTUM HEMORRHAGE, UNSPECIFIED, UNSPECIFIED TRIMESTER Status: Acute (7) (normal spontaneous vaginal delivery) SNOMED Code(s): 62014586 ICD Code: O80 - ENCOUNTER FOR FULL-TERM UNCOMPLICATED DELIVERY Status: Acute (8) Second degree laceration of perineum, delivered, current hospitalization SNOMED Code(s): 584637598 ICD Code: O70.1 - SECOND DEGREE PERINEAL LACERATION DURING DELIVERY Status : Acute (9) Periurethral laceration, delivered, current hospitalization SNOMED Code(s): 232100171 ICD Code: O71.82 - OTHER SPECIFIED TRAUMA TO PERINEUM AND VULVA Status: Acute - Patient Summary/Data Complications: None Consults: None Hospital Course: Stage I: Bel was admitted for augmentation of early labor in the setting of possible placental abruption after she had a large gush of blood in the morning of 12/20/16 and several late decelerations on monitoring during her evaluation. On admission her cervix was dilated to 4 cm. She was GBS negative. She was started on Pitocin for augmentation of her labor. She had artificial rupture membranes with return of clear fluid. She was given an epidural for anesthesia. She progressed to complete and pushing. Stage II: On 12/20/16 she had a normal vaginal delivery of a live male infant at 1855. Apgars of 8 & 9. Weight of 3960 g (8 lbs 12 oz). Length of 21 inches. There was no nuchal cord. Infant was delivered in TRACIE position. The cord was doubly clamped and cut by friend. Infant was placed on mother's abdomen. Stage III: She had a spontaneous delivery of an intact placenta in [place] presentation. Three vessel cord. She was given pitocin and fundal massage. She had a second-degree midline and bilateral periurethral lacerations. The midline laceration was repaired with 3-0 Vicryl. The periurethral lacerations were repaired with 4-0 Vicryl. Mom and baby were stable to recovery. EBL of 300 mL. Patient did well after delivery. She was meeting all milestones on day #1. She was able to tolerate a regular diet, voiding without difficulty, ambulating without difficulty, and her pain was controlled with oral medications. She desired to be discharged home in the evening of day #1 after the baby had been monitored for 24 hours after delivery. She will follow-up with Dr. Lee or myself in 2 weeks or earlier as needed. - Patient Instructions Diet: Usual Diet as Tolerated Diet, Other: diet, increase calcium intake and extra calories Activity: No Strenuous Activities Activity, Other: Pelvic rest: nothing per vagina (tampons/intercourse) until cleared by MD. Driving: May Drive Today Showering/Bathing: May Shower Notify Provider of: Fever, Increased Pain, Swelling and Redness, Drainage, Nausea and/or Vomiting - Discharge Plan Home Medications: Home Meds Vit37/Iron/Folic Acid [[place]ren[place]] 1 each PO DAILY 05/06/16 [History] Acetaminophen [Tylenol] 650 mg PO Q6H PRN tablet 12/21/16 [Rx] Benzocaine/Menthol [Dermoplast Pain Relief [place]] 1 applic TOP ASDIRECTED PRN canister 12/21/16 [Rx] Docusate Sodium [Colace] 100 mg PO BID PRN cap 12/21/16 [Rx] Ibuprofen [IJD: Ibuprofen] 600 mg PO Q6H PRN tablet 12/21/16 [Rx] Lanolin [Lansinoh HPA] 1 applic TOP ASDIRECTED PRN tube 12/21/16 [Rx] Witch Carrie [Tucks] 1 pad TOP ASDIRECTED PRN pad 12/21/16 [Rx] Patient Handouts: Exclusive , Vaginal Delivery, Care After, Care of a Perineal Tear Referrals: Adithya Lee MD [Physician] - ( follow up in 2 weeks. Please call and make this appointment.) - Discharge Summary/Plan Comment DC Time >30 min.: No - Patient Data Vitals - Most Recent: Last Vital Signs Temp 36.1 C 12/21/16 13:39 Pulse 77 12/21/16 13:39 Resp 16 12/21/16 13:20 BP 128/67 12/21/16 13:20 Pulse Ox 96 12/21/16 13:39 Weight - Most Recent: 89.358 kg Med Orders - Current: Current Medications Discontinued Medications Acetaminophen (Tylenol) 650 mg PO Q6H PRN PRN Reason: mild pain or fever Benzocaine/Menthol (Dermoplast Pain Relief [place]) 0 gm TOP ASDIRECTED PRN PRN Reason: Perineal Comfort Measure Last Admin: 12/20/16 20:58 Dose: 1 canister Bupivacaine HCl (Sensorcaine-Mpf 0.25%) 10 ml .ROUTE .STK-MED ONE Stop: 12/20/16 22:23 Diphenhydramine HCl (Benadryl) 25 mg IVPUSH Q6H PRN PRN Reason: Itching Docusate Sodium (Colace) 100 mg PO BID PRN PRN Reason: Constipation Last Admin: 12/20/16 21:01 Dose: 100 mg Emollient Ointment (Lansinoh Hpa) 0 gm TOP ASDIRECTED PRN PRN Reason: Sore Nipples Ephedrine Sulfate (Ephedrine Sulfate) 5 mg IVPUSH ASDIRECTED PRN PRN Reason: HYPOTENTSION Fentanyl (Sublimaze) 100 mcg EPIDUR Q3H PRN PRN Reason: PAIN Last Admin: 12/20/16 17:01 Dose: 100 mcg Fentanyl/Bupivacaine HCl (Fentanyl/Bupivacaine/Ns 2 Mcg-0.125% 100 Ml) 100 ml EPIDUR ASDIRECTED [facility] Last Admin: 12/20/16 17:01 Dose: 100 ml Ferrous Sulfate (Ferrous Sulfate) [facility] Last Admin: 12/21/16 15:21 Dose: Not Given Hydrocortisone Acetate (Anucort-Hc) 25 mg RECTAL BID PRN PRN Reason: Hemorrhoid pain Lactated Ringer's (Ringers, Lactated) 1,000 mls @ 100 mls/hr IV ASDIRECTED [facility] Last Admin: 12/20/16 18:10 Dose: 250 mls/hr Oxytocin/Lactated Ringer's (Pitocin In Lr 10 Units/1,000 Ml) 10 unit in 1,000 mls @ 100 mls/hr IV .CONTINUOUS TERESSA Oxytocin/Lactated Ringer's (Pitocin In Lr 10 Units/1,000 Ml) 10 unit in 1,000 mls @ 12 mls/hr IV TITRATE TERESSA; 2 MUNITS/MIN PRN Reason: Protocol Last Titration: 12/20/16 19:00 Dose: 900 mls/hr Lactated Ringer's (Ringers, Lactated) 1,000 mls @ 125 mls/hr IV ASDIRECTED TERESSA Oxytocin/Lactated Ringer's (Pitocin In Lr 10 Units/1,000 Ml) 10 unit in 1,000 mls @ 100 mls/hr IV TITRATE TERESSA PRN Reason: Protocol Ibuprofen (Motrin) 600 mg PO Q6H PRN PRN Reason: Mild pain or fever Last Admin: 12/20/16 21:00 Dose: 600 mg Lidocaine HCl (Xylocaine 1%) Confirm Administered Dose 50 ml .ROUTE .STK-MED ONE Stop: 12/20/16 19:01 Last Admin: 12/20/16 21:02 Dose: 50 ml Lidocaine HCl (Xylocaine 1%) 20 ml INJECT ONETIME ONE Stop: 12/20/16 19:08 Last Admin: 12/21/16 15:25 Dose: Not Given Magnesium Hydroxide (Milk Of Magnesia) 30 ml PO BEDTIME PRN PRN Reason: Constipation Ondansetron HCl (Zofran) 4 mg IVPUSH Q4H PRN PRN Reason: Nausea/Vomiting Prenat Multivit/[place]/Iron/Folic Ac ( Plus Iron) 1 each PO DAILY TERESSA Last Admin: 12/21/16 15:21 Dose: Not Given Sodium Chloride (Saline Flush) 10 ml FLUSH ASDIRECTED PRN PRN Reason: Keep Vein Open Witclemente Butler (Tucks) 1 pad TOP ASDIRECTED PRN PRN Reason: Hemorrhoid pain Last Admin: 12/20/16 20:59 Dose: 1 tub *Q Meaningful Use (DIS) - VTE *Q VTE Criteria *Q: - Stroke *Q Stroke Criteria *Q: - AMI *Q AMI Criteria *Q:
== END 2016-12-21 19:25 | disposition home or self-care (01) | DRG 774 ==
LOC: JD.OBCHECK 09:18 → JD.OB 09:18 → JD.OBCHECK 12:35 → JD.OB 12:36 → OBSVTOIN 18:55
PROVIDERS: ADMIT Obstetrics & Gynecology; ATTEND Obstetrics & Gynecology
PROC: 10E0XZZ Delivery of Products of Conception, External Approach (ICD-10-PCS; principal; 2016-12-20)
PROC: 0KQM0ZZ Repair Perineum Muscle, Open Approach (ICD-10-PCS; 2016-12-20)
PROC: 10907ZC Drainage of Amniotic Fluid, Therapeutic from Products of Conception, Via Natural or Artificial Opening (ICD-10-PCS; 2016-12-20)
PROC: 00HU33Z Insertion of Infusion Device into Spinal Canal, Percutaneous Approach (ICD-10-PCS; 2016-12-20)
PROC: 3E0R3BZ Introduction of Anesthetic Agent into Spinal Canal, Percutaneous Approach (ICD-10-PCS; 2016-12-20)
DX: O45.93 Premature separation of placenta, unspecified, third trimester (principal); O70.1 Second degree perineal laceration during delivery; O71.82 Other specified trauma to perineum and vulva; Z3A.38 38 weeks gestation of pregnancy; Z37.0 Single live birth; O99.344 Other mental disorders complicating childbirth; F41.8 Other specified anxiety disorders; O99.02 Anemia complicating childbirth; D64.9 Anemia, unspecified; O76 Abnormality in fetal heart rate and rhythm complicating labor and delivery; K64.9 Unspecified hemorrhoids; G43.909 Migraine, unspecified, not intractable, without status migrainosus
CPT/HCPCS: 01967; 36415; 51702; 59300; 59409; 80053; 82570; 84156; 85025; A9270-GY; J2590; J3010; J7120

== ENCOUNTER 2016-12-26 15:26 | Emergency (ER) | payer MEDICAID ==
[2016-12-26 15:41] VITALS: BP 140/92
[2016-12-26] MEDS ORDERED: Lactated Ringers 1,000 ML IV ONE (15:41)
[2016-12-26] MEDS ORDERED: Sodium Chloride 0.9% 10 ML Syringe FLUSH PRN (15:41)
[2016-12-26] MEDS ORDERED: Metoclopramide 10 MG/2 ML SDV IVPUSH ONE (17:13)
[2016-12-26] MEDS ORDERED: Ketorolac 30 MG/ML SDV IVPUSH ONE (17:13)
--- NOTE | 2016-12-26 17:35 | PCM.SN ---
- Free Text/Narrative Note: 12/26/16 [id number] Was notified to assess patient for post dural puncture headache by DR. Lee. Patient in ER getting IV fluids. Upon entry into room patient sitting at 45 degree angle holding baby and also scrolling on her iphone. Also is behavior therapist of young girl at her bedside. Patient states had headache since Saturday night. Intermittent- some nausea. No change in headache with postural changes. complains of mid back pain.Skin warm, dry. Pale complexion. Back area clear with no redness or swelling around epidural site. Tylenol and etc OTC meds are not helping. She has a history of migraines- even as a child. She has some pressure in forehead and sometimes in neck area. Sometimes it throbs. What makes her headache feel the best is sitting at angle - with a pillow in mid back area putting pressure on her back. Dr. Shah, GEORGE consulted and recommended not performing blood patch as is not classic GI[place]ANO. Patient informed if worse, pain radiating down a leg or fever to return to ER. ER provider also in on conversation with MDA and agrees and will proceed to medicate patient. DR. Lee notified of events.
--- NOTE | 2016-12-26 18:12 | EDM.PDOC ---
ED HPI GENERAL MEDICAL PROBLEM - General Chief Complaint: Headache Stated Complaint: HEADACHES 1WK Time Seen by Provider: 12/26/16 16:00 Source of Information: Reports: Patient History Limitations: Reports: No Limitations - History of Present Illness INITIAL COMMENTS - FREE TEXT/NARRATIVE: 31 year old female presents for evaluation and treatment of a headache. Patient is one week post . Patient delivered via vaginal delivery one week ago. She had an epidural. No complications with the delivery. Patient was seen by her story writer today. Was instructed to come to the ER for a blood patch. Patient reports the head ache has been present over the last 3 days. She reports associated symptoms of back pain and nausea. No neck pain, fevers or vomiting . Back pain is located at the level of her epidural. Does not report any positional changes with the headache. Has not tried any OTC medications for the headache or the nausea. Patient has a past medical history of migraines. Feels this is different from previous migraines. Headache Pain Score (Numeric/FACES): 6 - Related Data Allergies Allergy/AdvReac Type Severity Reaction Status Date / Time latex Allergy Hives Verified 12/26/16 15:37 Home Meds: Home Meds Vit37/Iron/Folic Acid [Prenata] 1 each PO DAILY 05/06/16 [History] Acetaminophen [Tylenol] 650 mg PO Q6H PRN tablet 12/21/16 [Rx] Benzocaine/Menthol [Dermoplast Pain Relief [place]] 1 applic TOP ASDIRECTED PRN canister 12/21/16 [Rx] Docusate Sodium [Colace] 100 mg PO BID PRN cap 12/21/16 [Rx] Ibuprofen [IJD: Ibuprofen] 600 mg PO Q6H PRN tablet 12/21/16 [Rx] Lanolin [Lansinoh HPA] 1 applic TOP ASDIRECTED PRN tube 12/21/16 [Rx] Witch Carrie [Tucks] 1 pad TOP ASDIRECTED PRN pad 12/21/16 [Rx] Past Medical History - Past Health History Medical/Surgical History: Denies Medical/Surgical History HEENT History: Reports: Other (See Below) Other HEENT History: wears glasses Gastrointestinal History: Reports: GERD Genitourinary History: Reports: Renal Calculus THERAPEUTIC STRATEGY LEAD History: Reports: Neurological History: Reports: Migraines, Other (See Below) Other Neuro History: in the past, none recently Psychiatric History: Reports: Anxiety, Depression, Other (See Below) Other Psychiatric History: Stopped medicatines at begining of . Dermatologic History: Reports: Other (See Below) Other Dermatologic History: currently being treated for boils - Past Surgical History Female Surgical History: Reports: Lithotripsy/ESWL Social & Family History - Family History Family Medical History: Noncontributory - Tobacco Use Smoking Status *Q: Never Smoker Second Hand Smoke Exposure: No - Caffeine Use Caffeine Use: Reports: Soda Caffeine Use Comment: once per week - Recreational Drug Use Recreational Drug Use: No - Living Situation & Occupation Living situation: Reports: Single, with Significant Other, with Family Occupation: Employed ED ROS GENERAL - Review of Systems Review Of Systems: See Below Constitutional: Denies: Fever GI/Abdominal: Reports: Nausea. Denies: Vomiting Musculoskeletal: Reports: Back Pain. Denies: Neck Pain Neurological: Reports: Headache - Physical Exam Exam: See Below Exam Limited By: No Limitations General Appearance: Alert, WD/WN, No Apparent Distress Ears: Normal External Exam Nose: Normal Inspection Throat/Mouth: Normal Inspection, Normal Lips, Normal Voice, No Airway Compromise Neck: Normal Inspection, Non-Tender, Full Range of Motion Respiratory/Chest: No Respiratory Distress, Lungs Clear, Normal Breath Sounds Cardiovascular: Normal Peripheral Pulses, Regular Rate, Rhythm, No Murmur Neuro Exam (Abbreviated): Alert, Oriented, Normal Cognition Back Exam: Normal Inspection, Vertebral Tenderness (around L1 to L3 puncture sharee present where she likely had the epidural) Extremities: Normal Inspection Psychiatric: Normal Affect, Normal Mood Skin Exam: Warm, Dry, Normal Color. No: Erythema Course - Vital Signs Last Recorded V/S: Last Vital Signs Temp 36.7 C 12/26/16 15:37 Pulse 80 12/26/16 15:37 Resp 17 12/26/16 15:37 BP 140/92 H 12/26/16 15:37 Pulse Ox 96 12/26/16 15:37 Orthostatic Blood Pressure [ 128/90 Standing] Orthostatic Blood Pressure [ 147/93 Sitting] Orthostatic Blood Pressure [ 144/89 Supine] - Orders/Labs/Meds Orders: Active Orders 24 hr Category Date Time Status Orthostatic Vital Signs [RC] ASDIRECTED Care 12/26/16 17:01 Active Peripheral IV Care [RC] . DIRECTED Care 12/26/16 15:41 Active Peripheral IV Insertion Adult [OM.PC] Routine Oth 12/26/16 15:41 Ordered Labs: Laboratory Tests 12/26/16 12/26/16 Range/Units 15:54 15:54 WBC 8.11 (3.98-10.04) K/mm3 RBC 3.19 L (3.98-5.22) M/mm3 Hgb 9.5 L (11.2-15.7) gm/L Hct 28.6 L (34.1-44.9) % MCV 89.7 (79.4-94.8) fl MCH 29.8 (25.6-32.2) pg MCHC 33.2 (32.2-35.5) g/dl RDW Std Deviation 41.8 (36.4-46.3) fL Plt Count 317 (182-369) K/mm3 MPV 9.8 (9.4-12.3) fl Neut % (Auto) 60.4 (34.0-71.1) % Lymph % (Auto) 25.5 (19.3-51.7) % [place] % (Auto) 8.4 (4.7-12.5) % Eos % (Auto) 4.7 (0.7-5.8) Baso % (Auto) 0.5 (0.1-1.2) % Neut # (Auto) 4.90 (1.56-6.13) K/mm3 Lymph # (Auto) 2.07 (1.18-3.74) K/mm3 [place] # (Auto) 0.68 H (0.24-0.36) K/mm3 Eos # (Auto) 0.38 H (0.04-0.36) K/mm3 Baso # (Auto) 0.04 (0.01-0.08) K/mm3 Sodium 143 (136-145) mEq/L Potassium 3.9 (3.5-5.1) mEq/L Chloride 107 (98-107) mEq/L Carbon Dioxide 27 (21-32) mEq/L Anion Gap 12.9 (5-15) BUN 8 (7-18) mg/dL Creatinine 0.7 (0.55-1.02) mg/dL Est Cr Clr Drug Dosing 85.18 mL/min Estimated GFR (MDRD) > 60 (>60) mL/min BUN/Creatinine Ratio 11.4 L (14-18) Glucose 86 (74-106) mg/dL Calcium 9.0 (8.5-10.1) mg/dL Meds: Medications Discontinued Medications Generic Name Dose Route Start Last Admin Trade Name Randyq PRN Reason Stop Dose Admin Lactated Ringer's 1,000 mls @ 999 mls/hr 12/26/16 15:41 12/26/16 16:01 Ringers, Lactated IV 12/26/16 16:41 999 mls/hr .BOLUS ONE Administration Ketorolac Tromethamine 30 mg 12/26/16 17:13 12/26/16 18:15 Toradol IVPUSH 12/26/16 17:14 30 mg ONETIME ONE Administration Metoclopramide HCl 10 mg 12/26/16 17:13 12/26/16 18:15 Reglan IVPUSH 12/26/16 17:14 10 mg ONETIME ONE Administration Sodium Chloride 10 ml 12/26/16 15:41 12/26/16 16:01 Saline Flush FLUSH 10 ml ASDIRECTED PRN Administration Keep Vein Open - Re-Assessments/Exams Free Text/Narrative Re-Assessment/Exam: 12/26/16 18:29 LELA Pimentel has come and seen the patient in the ER. I agree with her this headache is unlikely from her epidural. Please see Denise's note for full report. Given she also has back pain, a blood patch is not indicated at this time. Labs have a normal WBC. Hgb is low at 9.5, will have her follow-up for this. no transfusion indicated at this time. I discussed the labs with the patient. Ordered toradol and reglan for symptoms. She is anxious to go home at this point. Will discharge home. Discharge instructions as documented. Departure - Departure Time of Disposition: 18:31 Disposition: Home, Self-Care 01 Condition: Good Clinical Impression: Migraine - Discharge Information Instructions: Migraine Headache Referrals: Adithya Lee MD [Primary Care Provider] - Forms: ED Department Discharge Additional Instructions: Rest. Make sure you are drinking plenty of fluids. Drink about half you body weight in ounces every day, bijan. when you are breast- feeding. [id number] Tylenol or Motrin as needed for pain relief. Follow-up with your family medicine provided if your symptoms do not improve within one week. Please return to ER if your symptoms change or worsen. - My Orders Last 24 Hours: My Active Orders 12/26/16 15:41 Peripheral IV Care [RC] . DIRECTED Peripheral IV Insertion Adult [OM.PC] Routine 12/26/16 17:01 Orthostatic Vital Signs [RC] ASDIRECTED - Assessment/Plan Last 24 Hours: My Active Orders 12/26/16 15:41 Peripheral IV Care [RC] . DIRECTED Peripheral IV Insertion Adult [OM.PC] Routine 12/26/16 17:01 Orthostatic Vital Signs [RC] ASDIRECTED
== END 2016-12-26 18:40 | disposition home or self-care (01) ==
LOC: JD.ED 15:26
DX: O99.355 Diseases of the nervous system complicating the puerperium (principal); G43.909 Migraine, unspecified, not intractable, without status migrainosus; Z91.040 Latex allergy status
CPT/HCPCS: 36415; 80048; 85025; 96361; 96374; 96375; 99284; J1885; J2765; J7050; J7120